=== PATIENT | female | born 1930 | race Caucasian/White ===

== ENCOUNTER 2016-11-01 15:08 | Emergency (ER) | payer MEDICARE, MEDICAID ==
--- NOTE | 2016-11-01 16:29 | RAD ---
Indication: Fall, head injury. CT of the head was performed without IV contrast. Comparison is made with previous exam dated August 17, 2015. Ventricular structures are midline. No midline shift is noted. There is central and cortical atrophy noted. 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 There is no evidence of intracranial mass or hemorrhage. Additionally hypodensity is noted in the left occipital lobe likely due to old infarct. 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 IMPRESSION: NO INTRACRANIAL MASS OR HEMORRHAGE IS NOTED. 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 NO INTRACRANIAL MASS OR HEMORRHAGE IS NOTED.
--- NOTE | 2016-11-01 16:32 | RAD ---
Indication: Fall, neck injury. CT of the cervical spine was obtained in the axial plane. Sagittal and coronal reconstructed images were obtained. Mastoid air cells and skull base are unremarkable with no evidence of fracture. The C1 ring is intact. No fracture is identified. There is calcification of the transverse ligament. The vertebral bodies appear normal in height. No fracture is noted. At C2-C3 there is left facet hypertrophy is noted. No central or foraminal stenosis is noted. At C4-C5 spondylitic ridge with left uncovertebral joint hypertrophy narrows the left foramen. No central foraminal stenosis is noted. Minimal broad-based protrusion is noted. At C4-C5 spondylitic ridge is noted. Bilateral uncovertebral joint hypertrophy and bilateral facet arthropathy is noted with bilateral foraminal stenosis. At C5-C6 spondylitic ridge is noted. No central or foraminal stenosis is noted. Mild facet arthropathy is noted. Ventral osteophyte formation is present. At C6-C7 no focal protrusion is identified. No central or foraminal stenosis is noted. Ventral osteophyte formation is noted. At C7-T1 disc space appears unremarkable. No central or foraminal stenosis is noted. Ventral osteophyte formation is noted. IMPRESSION: Degenerative disc disease is present at multiple levels. No fracture of the cervical spine is noted.
--- NOTE | 2016-11-01 16:34 | RAD ---
Indication: Fall, facial injury. CT of the facial bones is obtained in the axial plane. Sagittal and coronal reconstructed images were obtained. Comminuted fracture of the nasal arch is noted both on the left and on the right side. Mild soft tissue swelling is noted. The orbits are otherwise intact. The paranasal sinuses are intact. The zygomatic arch demonstrates no fracture. Temporomandibular joints are unremarkable. The visualized mandible demonstrates no evidence of fracture. Maxilla including pterygoid plates demonstrates no fracture of old the left maxillary sinus appears to be hypoplastic. IMPRESSION: Comminuted fracture of the left and right nasal arch with slight overriding of the fracture fragments in soft tissue swelling. Clinical correlation is suggested. No other fractures are noted.
[2016-11-01 16:43] LABS: Hematocrit 35 % (35-47); Hemoglobin 11.6 g/dl (12.0-16.0); Mean Corpuscular HGB Conc 33 g/dl (31-36); Mean Corpuscular Hemoglobin 31 pg (27-31); Mean Corpuscular Volume 92 fL (80-97); Mean Platelet Volume 9 um3 (7.4-10.4); Red Blood Count 3.79 10^6/ul (4.0-5.4); Red Cell Distribution Width 14 % (10.5-15); White Blood Count 8.6 10^3/ul (3.5-10.8)
[2016-11-01 16:57] LABS: Calcium 9.7 mg/dL (8.6-10.3); EGFR African American 50.8 (>60); EGFR Non-African American 39.5 (>60); Globulin 3.4 g/dL (2-4); Potassium 3.8 mmol/L (3.5-5.0); Total Bilirubin 0.5 mg/dL (0.2-1.0); Total Protein 7.4 g/dL (6.4-8.9)
--- NOTE | 2016-11-01 17:18 | RAD ---
Indication: LEFT hip pain post fall. Comparison: August 17, 2015 and May 05, 2015 Technique: AP pelvis and AP and frog-leg lateral views LEFT hip. Report: Bipolar LEFT hip hemiprosthesis is normally located. No periprosthetic fracture or stigmata of loosening. Large burden of dystrophic bone formation about the LEFT hip without change compared with the 2015 exam. The RIGHT hip is remarkable for osteophytosis and osseous metaplasia of degenerated labrum without significant joint space narrowing. Sequela of bilateral healed pubic rami fractures without change. No acute pelvic fracture or joint diastases. Diffuse enthesopathy. 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 Unremarkable soft tissue contours. IMPRESSION: No acute traumatic injury of the hip or pelvis evident.
[2016-11-01] MEDS ORDERED: Acetaminophen TAB* 325 MG PO ONE (17:32)
--- NOTE | 2016-11-01 18:36 | ED ---
Pawan Duarte Alok, scribed for Jefe Alaniz MD on 11/01/16 at 1601 . Adult Trauma - HPI Summary HPI Summary: 86 y/o female presents to the ED after falling forwards while trying to grape picker something up from the ground. Pt has ecchymosis on the left side of her forehead and notes pain on the left side of her hip towards the back, and denies any head pain or LOC. - History of Current Complaint Chief Complaint: EDHeadInjury Stated Complaint: LT ELBOW LAC Time Seen by Provider: 11/01/16 15:39 Hx Obtained From: Patient ?: No Mechanism of Injury: Fall Loss of Consciousness: no loss of consciousness Onset/Duration: Started Hours Ago, Traumatic, Still Present Onset of Pain: Immediate Onset Severity: Moderate Current Severity: Moderate Pain Intensity: 5 Pain Scale Used: 0-10 Numeric Location: Head, Abdomen/Pelvis Aggravating Factor(s): Nothing Alleviating Factor(s): Nothing Associated Signs & Symptoms: Positive: Ecchymosis - left side forehead. Negative: Loss of Consciousness - Allergy/Home Medications Allergies/Adverse Reactions: Allergies Allergy/AdvReac Type Severity Reaction Status Date / Time Morphine Allergy Intermediate Agitation Verified 08/17/15 12:23 Nitroglycerin Allergy Mild Unknown Verified 08/17/15 12:23 [From Transderm-Nitro] Reaction Details Cefuroxime [From Ceftin] Allergy Unknown Unknown Verified 08/17/15 12:23 Reaction Details Iodine Allergy Unknown Unknown Verified 08/17/15 12:23 Reaction Details Iodinated Diagnostic Agents Allergy Unknown Verified 08/17/15 12:23 Reaction Details PMH/Surg Hx/FS Hx/Imm Hx Endocrine/Hematology History: Reports: Hx Anticoagulant Therapy, Hx Diabetes, Hx Thyroid Disease, Hx Anemia Cardiovascular History: Reports: Hx Hypertension, Hx Valvular Heart Disease Respiratory History: Denies: Hx Asthma GI History: Denies: Hx Ulcer Musculoskeletal History: Reports: Hx Arthritis - Rheumatoid, Hx Osteoporosis, Other Musculoskeletal History - fractures; pt not sure of left tibial fracture Comment Only: Hx Rheumatoid Arthritis - OSTIO ARTHRITIS Sensory History: Reports: Hx Contacts or Glasses, Hx Hearing Problem - pt stated rt ear [facility] Opthamlomology History: Reports: Hx Contacts or Glasses - Cancer History Cancer Type, Location and Year: RT BREAST CA - Surgical History Surgery Procedure, Year, and Place: OPEN HEART SURGERY,LEFT HIP REPLACEMENT - Immunization History Date of Tetanus Vaccine: Unknown Infectious Disease History: Denies: Hx Clostridium Difficile, Hx Hepatitis, Hx Human Immunodeficiency Virus (HIV), Hx of Known/Suspected MRSA, Hx Shingles, Hx Tuberculosis, Hx Known/ Suspected VRE, Hx Known/Suspected VRSA, History Other Infectious Disease, Traveled Outside the [place] in Last 30 Days - Family History Known Family History: Positive: Cardiac Disease - Social History Occupation: Retired Lives: [facility] Alcohol Use: None Substance Use Type: Reports: None Smoking Status (MU): Former Smoker Type: Cigarettes Amount Used/How Often: cannot remember Review of Systems Negative: Fever Positive: Other - Hip Pain Positive: Bruising Negative: Headache All Other Systems Reviewed And Are Negative: Yes Physical Exam - Summary Physical Exam Summary: VITAL SIGNS: Reviewed. GENERAL: ~Patient is an elderly female who is lying comfortable in the stretcher. ~Patient is not in any acute respiratory distress. HEAD AND FACE: Ecchymosis left side forehead and around left eye EYES: PERRLA, EOMI x 2. EARS: Hearing grossly intact. MOUTH: Oropharynx within normal limits. NECK: Supple, trachea is midline, no adenopathy, no JVD, no carotid bruit. CHEST: Symmetric, no tenderness at palpation LUNGS: Clear to auscultation bilaterally. No wheezing or crackles. CVS: Regular rate and rhythm, S1 and S2 present, no murmurs or gallops appreciated. ABDOMEN: Soft, non-tender. Bowel sounds are normal. No abdominal abnormal pulsations. EXTREMITIES: Decreased ROM hip secondary to pain. No other ecchymosis appreciated. NEURO: Alert and oriented x 3. No acute neurological deficits. Speech is normal and follows commands. SKIN: Dry and warm Triage Information Reviewed: Yes Vital Signs On Initial Exam: Initial Vitals Temp Pulse Resp BP Pulse Ox 98.8 F 84 16 137/53 100 11/01/16 15:10 11/01/16 15:10 11/01/16 15:10 11/01/16 15:10 11/01/16 15:10 Vital Signs Reviewed: Yes Diagnostics - Vital Signs Vital Signs Temp Pulse Resp BP Pulse Ox 11/01/16 15:10 98.8 F 84 16 137/53 100 - Laboratory Lab Results: Lab Results 11/01/16 11/01/16 Range/Units 16:30 16:30 WBC 8.6 (3.5-10.8) 10^3/ul RBC 3.79 L (4.0-5.4) 10^6/ul Hgb 11.6 L (12.0-16.0) g/dl Hct 35 (35-47) % MCV 92 (80-97) fL MCH 31 (27-31) pg MCHC 33 (31-36) g/dl RDW 14 (10.5-15) % Plt Count 140 L (150-450) 10^3/ul MPV 9 (7.4-10.4) um3 Neut % (Auto) 64.6 (38-83) % Lymph % (Auto) 19.7 L (25-47) % Mcdowell % (Auto) 10.6 H (1-9) % Eos % (Auto) 3.7 (0-6) % Baso % (Auto) 1.4 (0-2) % Absolute Neuts (auto) 5.6 (1.5-7.7) 10^3/ul Absolute Lymphs (auto) 1.7 (1.0-4.8) 10^3/ul Absolute Monos (auto) 0.9 H (0-0.8) 10^3/ul Absolute Eos (auto) 0.3 (0-0.6) 10^3/ul Absolute Basos (auto) 0.1 (0-0.2) 10^3/ul Absolute Nucleated RBC 0.01 10^3/ul Nucleated RBC % 0.1 Sodium 137 (133-145) mmol/L Potassium 3.8 (3.5-5.0) mmol/L Chloride 100 L (101-111) mmol/L Carbon Dioxide 30 (22-32) mmol/L Anion Gap 7 (2-11) mmol/L BUN 32 H (6-24) mg/dL Creatinine 1.28 H (0.51-0.95) mg/dL Est GFR ( Amer) 50.8 (>60) Est GFR (Non-Af Amer) 39.5 (>60) BUN/Creatinine Ratio 25.0 H (8-20) Glucose 104 H (70-100) mg/dL Calcium 9.7 (8.6-10.3) mg/dL Total Bilirubin 0.50 (0.2-1.0) mg/dL AST 16 (13-39) U/L ALT 7 (7-52) U/L Alkaline Phosphatase 74 (34-104) U/L Total Protein 7.4 (6.4-8.9) g/dL Albumin 4.0 (3.2-5.2) g/dL Globulin 3.4 (2-4) g/dL Albumin/Globulin Ratio 1.2 (1-3) Result Diagrams: 11/01/16 16:30 11/01/16 16:30 Lab Statement: Any lab studies that have been ordered have been reviewed, and results considered in the medical decision making process. - Radiology Hip/Pelvis XRAY Xray Interpretation: Positive (See Comments) - IMPRESSION: No acute traumatic injury of the hip or pelvis evident. Radiology Interpretation Completed By: Radiologist - CT Brain CT CT Interpretation: Positive (See Comments) - IMPRESSION: NO INTRACRANIAL MASS OR HEMORRHAGE IS NOTED. 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 NO INTRACRANIAL MASS OR HEMORRHAGE IS NOTED. CT Interpretation Completed By: Radiologist Cervical Spine CT CT Interpretation: Positive (See Comments) - IMPRESSION: Degenerative disc disease is present at multiple levels. No fracture of the cervical spine is noted. CT Interpretation Completed By: Radiologist Maxillofacial CT CT Interpretation: Positive (See Comments) - IMPRESSION: Comminuted fracture of the left and right nasal arch with slight overriding of the fracture fragments in soft tissue swelling. Clinical correlation is suggested. No other fractures are noted. CT Interpretation Completed By: Radiologist Adult Trauma Course/Dx - Course Course Of Treatment: 86 y/o female presents to the ED after falling forwards while trying to grape picker something up from the ground. Pt notes pain on the left side of her hip towards the back, and denies any head pain or LOC. Assessment/Plan: Blood work within nml limits except for Hgb 11.6 L, BUN 32 H, Creatinine 12.[address] shows IMPRESSION: NO INTRACRANIAL MASS OR HEMORRHAGE IS NOTED. 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 NO INTRACRANIAL MASS OR HEMORRHAGE IS NOTED. Since pt has no fracture and no dislocation, we ambulated pt who showed a good and steady gait. There are no other pt complaints or pain. Pt is A+Ox3 and hemodynamically stable so will discharge with recommendation to follow up with PCP. I discussed all the findings and test results with the patient. Patient was instructed to return to the emergency room immediately if any of the symptoms return or worsens. Plan of care was discussed with the patient and understands and agrees. All questions were answered at patient satisfaction. There were no further complaints or concerns. Lung exam before discharge: CTA B /L. Good air exchange. No wheezing or crackles heard. CVS: S1 and S2 present. No murmurs appreciated. Patient is alert and oriented x 3. Patient is hemodynamically stable. Patient will be discharged home with follow up director retirement in the next 2-3 days - Diagnoses Provider Diagnoses: Head contusion, Contusion, hip, Facial contusion Discharge - Discharge Plan Condition: Stable Disposition: HOME Patient Education Materials: Scalp Contusion in Adults (ED), Hip Contusion (ED) , Facial Contusion (ED) Referrals: Floresita Christiansen MD [Primary Care Provider] - Additional Instructions: Please follow up with your primary care provider. The documentation as recorded by the Pawan boyce Alok accurately reflects the service I personally performed and the decisions made by me, Jefe Alaniz MD.
[2016-11-01 19:21] VITALS: BP 119/57
== END 2016-11-01 19:19 | disposition home or self-care (01) ==
LOC: ED 15:08
DX: S00.93XA Contusion of unspecified part of head, initial encounter (principal); S70.02XA Contusion of left hip, initial encounter; W19.XXXA Unspecified fall, initial encounter; Y93.9 Activity, unspecified; Y92.9 Unspecified place or not applicable; Z79.01 Long term (current) use of anticoagulants; Z87.891 Personal history of nicotine dependence
CPT/HCPCS: 36415; 70450; 70486; 72125; 80053; 85025; 99282; A9270-GY

== ENCOUNTER 2017-01-10 19:29 | Observation (INO) | payer MEDICARE, MEDICAID ==
--- NOTE | 2017-01-10 20:26 | ED ---
Rossi Duarte SooYoung, scribed for Charles Cazares MD on 01/10/17 at 1954 . Adult Trauma - HPI Summary HPI Summary: A 86 y/o F THIAGO presents to ED after a fall at approx 1830. Pt states she had made herself something to eat, and went to sit down when she fell and hit her head on a chair. Denies LOC. Associated sx: multiple ecchymosis around mouth and forehead; dried blood present around nose and upper lip; L shoulder pain from when caregivers helped her up. Pert PMHx: strokes. Pt lives in assisted living ([facility]) and ambulates with a walker. 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 Negative: Loss of Consciousness - Allergy/Home Medications Allergies/Adverse Reactions: Allergies Allergy/AdvReac Type Severity Reaction Status Date / Time Morphine Allergy Intermediate Agitation Verified 08/17/15 12:23 Nitroglycerin Allergy Mild Unknown Verified 08/17/15 12:23 [From Transderm-Nitro] Reaction Details Cefuroxime [From Ceftin] Allergy Unknown Unknown Verified 08/17/15 12:23 Reaction Details Iodine Allergy Unknown Unknown Verified 08/17/15 12:23 Reaction Details Iodinated Diagnostic Agents Allergy Unknown Verified 08/17/15 12:23 Reaction Details PMH/Surg Hx/FS Hx/Imm Hx Previously Healthy: No Endocrine/Hematology History: Reports: Hx Anticoagulant Therapy, Hx Diabetes, Hx Thyroid Disease, Hx Anemia Cardiovascular History: Reports: Hx Hypertension, Hx Valvular Heart Disease Respiratory History: Denies: Hx Asthma GI History: Denies: Hx Ulcer Musculoskeletal History: Reports: Hx Arthritis - Rheumatoid, Hx Osteoporosis, Other Musculoskeletal History - fractures; pt not sure of left tibial fracture Comment Only: Hx Rheumatoid Arthritis - OSTIO ARTHRITIS Sensory History: Reports: Hx Contacts or Glasses, Hx Hearing Problem - pt stated rt ear [place] Opthamlomology History: Reports: Hx Contacts or Glasses - Cancer History Cancer Type, Location and Year: RT BREAST CA - Surgical History Surgery Procedure, Year, and Place: OPEN HEART SURGERY,LEFT HIP REPLACEMENT - Immunization History Date of Tetanus Vaccine: Unknown Infectious Disease History: No Infectious Disease History: Denies: Hx Clostridium Difficile, Hx Hepatitis, Hx Human Immunodeficiency Virus (HIV), Hx of Known/Suspected MRSA, Hx Shingles, Hx Tuberculosis, Hx Known/ Suspected VRE, Hx Known/Suspected VRSA, History Other Infectious Disease, Traveled Outside the [place] in Last 30 Days - Family History Known Family History: Positive: Cardiac Disease - Social History Occupation: Retired Lives: Assisted Living Alcohol Use: None Hx Substance Use: No Substance Use Type: Reports: None Hx Tobacco Use: Yes Smoking Status (MU): Former Smoker Type: Cigarettes Amount Used/How Often: cannot remember Review of Systems Negative: Fever Positive: Other - pos: L shoulder pain Positive: Bruising, Other - pos: dried blood on face All Other Systems Reviewed And Are Negative: Yes Physical Exam Triage Information Reviewed: Yes Vital Signs On Initial Exam: Initial Vitals Temp Pulse Resp BP Pulse Ox 98.3 F 72 18 142/57 97 01/10/17 19:31 01/10/17 19:31 01/10/17 19:31 01/10/17 19:31 01/10/17 19:31 Vital Signs Reviewed: Yes Appearance: Positive: Well-Appearing, Pain Distress - mild discomfort Skin: Positive: Warm Head/Face: Positive: Other - patchy ecchymosis to frontal scalp, mid face, chin Eyes: Positive: CAT ENT: Positive: Hearing grossly normal Neck: Positive: Supple Respiratory/Lung Sounds: Positive: Breath Sounds Present Cardiovascular: Positive: RRR Abdomen Description: Positive: Nontender, Soft Bowel Sounds: Positive: Present Musculoskeletal: Positive: Strength/ROM Intact Psychiatric: Positive: Affect/Mood Appropriate - [place]ump Coma Scale Coma Scale Total: 15 Diagnostics - Vital Signs Vital Signs Temp Pulse Resp BP Pulse Ox 01/10/17 19:31 98.3 F 72 18 142/57 97 - Laboratory Result Diagrams: 01/10/17 21:48 01/10/17 21:48 Lab Statement: Any lab studies that have been ordered have been reviewed, and results considered in the medical decision making process. - Radiology CXR Xray Interpretation: Positive (See Comments) - IMPRESSION: Hyperinflation, consistent with COPD. No active cardiopulmonary dz. Radiology Interpretation Completed By: Radiologist - CT Brain CT Interpretation: Positive (See Comments) - IMPRESSION: Large L frontal scalp hematoma. No acute intracranial pathology. CT Interpretation Completed By: Radiologist Maxillofacial CT Interpretation: Positive (See Comments) - IMPRESSION: 1. Chronic bilateral nasal bone fractures. 2. Large frontal scalp hematoma. C-Spine CT Interpretation: No Acute Changes - IMPRESSION: 1. OSTEOPENIA. 2. DEGENERATIVE DISC DISEASE AND OSTEOARTHRITIS. 3. NO ACUTE OSSEOUS INJURY TO THE CERVICAL SPINE CT Interpretation Completed By: Radiologist - EKG 1 EKG Rhythm: Sinus Rhythm Re-Evaluation - Re-Evaluation 1 Re-Evaluation Time: 22:15 Change: Unchanged Comment: Discussing results with pt, d/w hospitalist Adult Trauma Course/Dx - Course Course Of Treatment: Pt is a 86 y/o F presenting after a fall at approx 1830. Pt fell and hit her head on a chair. Denies LOC. Associated sx: multiple ecchymosis around mouth and forehead; dried blood present around nose and upper lip; L shoulder pain. Pt lives in assisted living and ambulates with a walker. Brain CT shows L frontal scalp hematoma and no acute intracranial pathology. Maxillofacial CT shows chronic bilateral nasal bone fractures. C-spine CT found no acute injury to c-spine. CXR shows hyperinflation, consistent with COPD. No active cardiopulmonary dz. EKG shows NSR. - Diagnoses Provider Diagnoses: Hyponatremia, Falls frequently Discharge - Discharge Plan Condition: Fair Disposition: ADMITTED TO [facility] documentation as recorded by the Rossi boyce SooYoung accurately reflects the service I personally performed and the decisions made by me, Charles Cazares MD.
--- NOTE | 2017-01-10 20:26 | RAD ---
HISTORY: Fall, head trauma COMPARISONS: November 01, 2016 TECHNIQUE: Multiple contiguous axial CT scans were obtained of the head without intravenous contrast. FINDINGS: HEMORRHAGE/INFARCT: There is no hemorrhage or acute infarct. MASSES/SHIFT: There is no mass or shift. EXTRA-AXIAL SPACES: There are no extra-axial fluid collections. SULCI AND VENTRICLES: There is diffuse and proportional enlargement of the sulci and ventricles. CEREBRUM: There is a chronic appearing lacunar infarct of the right thalamus. BRAINSTEM: There are no focal parenchymal abnormalities. CEREBELLUM: There are no focal parenchymal abnormalities. VESSELS: The vessels are grossly normal. PARANASAL SINUSES: The paranasal sinuses are clear. ORBITS: The orbits are unremarkable. BONES AND SOFT TISSUE: There is a large left frontal scalp hematoma. OTHER: None IMPRESSION: LARGE LEFT FRONTAL SCALP HEMATOMA. NO ACUTE INTRACRANIAL PATHOLOGY.
--- NOTE | 2017-01-10 20:30 | RAD ---
HISTORY: Fall, head trauma COMPARISONS: November 01, 2016 TECHNIQUE: Multiple contiguous axial CT scans were obtained of the face without intravenous contrast, with coronal and sagittal multiplanar reformations. FINDINGS: BONES: There, the fractures of the nasal bones bilaterally. These are chronic compared to November 01, 2016 There is diffuse osteopenia. There is osteoarthritis of the temporomandibular joints. ORBITS: The globes are round. The optic nerves are symmetric. The extraocular musculature is normal. There is no post septal or intraconal inflammatory change. There is no retrobulbar hematoma. PARANASAL SINUSES: The paranasal sinuses are clear. BRAIN AND SOFT TISSUE: There is a large left frontal scalp hematoma OTHER: None. IMPRESSION: 1. CHRONIC BILATERAL NASAL BONE FRACTURES. 2. LEFT FRONTAL SCALP HEMATOMA
--- NOTE | 2017-01-10 20:31 | RAD ---
HISTORY: Fall, head trauma COMPARISONS: November 01, 2016 TECHNIQUE: Multiple contiguous axial CT scans were obtained of the cervical spine without intravenous contrast, with coronal and sagittal multiplanar reformations. FINDINGS: BRAIN: The visualized brain is unremarkable CENTRAL CANAL: Evaluation of the central canal is limited on CT technique; however, there is no obvious canalicular mass or epidural hemorrhage. ALIGNMENT: There is straightening of the cervical lordosis. VERTEBRAL BODIES: There is diffuse osteopenia. There is multilevel anterolateral marginal osteophyte formation. There is no displaced fracture. JOINTS: There is osteoporosis of the atlantoaxial fixation of the uncovertebral and facet joints. There is large pannus formation at the atlantoaxial articulation. MUSCULATURE: Unremarkable INTERVERTEBRAL DISCS: There is diffuse loss of intervertebral disc height. AXIAL IMAGES: There is diffuse moderate neuroforaminal narrowing. There is no osseous central canal stenosis SOFT TISSUES: The visualized soft tissues of the neck are unremarkable. The prevertebral fat stripe is preserved. OTHER: None. IMPRESSION: 1. OSTEOPENIA. 2. DEGENERATIVE DISC DISEASE AND OSTEOARTHRITIS. 3. NO ACUTE OSSEOUS INJURY TO THE CERVICAL SPINE
--- NOTE | 2017-01-10 20:32 | RAD ---
HISTORY: Fall, head trauma COMPARISONS: October 27, 2014 VIEWS: 2: Frontal and lateral views of the chest. FINDINGS: CARDIOMEDIASTINAL SILHOUETTE: The cardiomediastinal silhouette is normal. YULIANA: The yuliana are normal. PLEURA: The costophrenic angles are sharp. No pleural abnormalities are noted. LUNG PARENCHYMA: There is hyperinflation with flattening of the diaphragm and expansion of the AP diameter of the chest. ABDOMEN: The upper abdomen is clear. There is no subphrenic gas. BONES AND SOFT TISSUES: There is diffuse osteopenia. Degenerative changes are noted of the spine and shoulders. The patient is status post median sternotomy. OTHER: None. IMPRESSION: HYPERINFLATION, CONSISTENT WITH COPD. NO ACTIVE CARDIOPULMONARY DISEASE.
[2017-01-10 21:54] LABS: Hematocrit 29 % (35-47); Hemoglobin 9.7 g/dl (12.0-16.0); Mean Corpuscular HGB Conc 33 g/dl (31-36); Mean Corpuscular Hemoglobin 30 pg (27-31); Mean Corpuscular Volume 91 fL (80-97); Mean Platelet Volume 8 um3 (7.4-10.4); Red Blood Count 3.21 10^6/ul (4.0-5.4); Red Cell Distribution Width 14 % (10.5-15); White Blood Count 8.2 10^3/ul (3.5-10.8)
[2017-01-10 22:08] LABS: Albumin 3.9 g/dL (3.2-5.2); BUN/Creatinine Ratio 27.1 (8-20); Calcium 9.1 mg/dL (8.6-10.3); EGFR African American 55.9 (>60); EGFR Non-African American 43.4 (>60); Potassium 3.3 mmol/L (3.5-5.0); Total Bilirubin 0.4 mg/dL (0.2-1.0); Total Protein 6.9 g/dL (6.4-8.9)
[2017-01-10] MEDS ORDERED: Al Hydrox/Mg Hydrox/Simet LIQ* 30 ML UDC PO PRN (23:27)
[2017-01-10] MEDS ORDERED: oxyCODONE/Acetamin 5/325 MG* TAB PO PRN (23:27)
[2017-01-10] MEDS ORDERED: Ondansetron INJ* 2 MG/ML VIAL IV PRN (23:27)
[2017-01-10] MEDS ORDERED: Acetaminophen TAB* 325 MG PO PRN (23:27)
[2017-01-10] MEDS ORDERED: Dextrose 50% Syringe 50 ML* 25 GM/50 ML SYRINGE IV PUSH PRN (23:32)
[2017-01-10] MEDS ORDERED: traMADol TAB* 50 MG PO PRN (23:33)
[2017-01-10] MEDS ORDERED: Potassium Chlor TAB* 10 MEQ TAB.ER PO ONE (23:49)
[2017-01-11 00:04] LABS: Troponin I 0.02 ng/mL (<0.04)
[2017-01-11 00:06] LABS: Magnesium 1.5 mg/dL (1.9-2.7)
[2017-01-11 00:11] LABS: TSH (Thyroid Stimulating Horm) 2.9 mcIU/mL (0.34-5.60)
[2017-01-11] MEDS ORDERED: Magnesium Sulfate 2 GM IV* 2 GM/50 ML BAG IVPB ONE (00:43)
--- NOTE | 2017-01-11 02:43 | HP ---
CC: Floresita Christiansen MD HISTORY AND PHYSICAL: DATE OF ADMISSION: 01/10/17 TIME OF EVALUATION: 2300 hours. PRIMARY CARE PHYSICIAN: Floresita Christiansen MD CHIEF COMPLAINT: Fall. HISTORY OF PRESENT ILLNESS: This is an 86-year-old female with a past medical history of diabetes, history of stroke, and CKD, who presented to the emergency room from [facility] after having a fall. The patient states she has had strokes in the past with some memory impairment and does not remember exactly what happened. She states she has been having difficulty eating due to issues with her lower teeth and she is planning to go to a dentist to get her teeth removed and get fitted with dentures, when she was trying to get some cereal and she uses a walker that has a chair in place and she wheeled herself over and she said she was sitting down and she is not sure if she bumped into something and she fell on her face. She states she does not feel that she lost consciousness, but does not remember what happened. She is complaining of a headache, left shoulder pain, and right elbow pain. She has no nausea or vomiting. She denies any chest pain or shortness of breath. She states that she has issues with falling every so often, this is not new to her. She has been in the hospital in the past for falls. She is alert and oriented x3. She also states that she does have chronic diarrhea, but she has been having more diarrhea of lately. New medication that she has recently started on is Marinol. She states that she has been having difficulty with keeping her weight up, but she feels this is attributed to her problems with her lower teeth and having difficulty eating because of the pain. Otherwise, remaining review of systems is negative. In the emergency room, the patient had labs and several imaging and was referred to the hospitalist service for further evaluation. PAST MEDICAL HISTORY: 1. Diabetes. 2. History of CAD. 3. History of CVA. 4. AFib, off anticoagulation. 5. CKD. 6. Hyperlipidemia. 7. Depression. 8. History of rectus sheath hematoma. 9. Hypertension. 10. Hypothyroidism. 11. History of iron-deficiency anemia. 12. History of microscopic colitis. 13. Vitamin B12 deficiency. PAST SURGICAL HISTORY: Coronary artery bypass graft. MEDICATIONS: 1. Omeprazole 20 mg p.o. daily. 2. Triamterene/hydrochlorothiazide 37.5/25 mg 1 cap daily. 3. Aspirin 81 mg daily. 4. Calcium with vitamin D daily. 5. Levothyroxine 50 mcg daily. 6. Pravastatin 40 mg daily. 7. Sertraline 100 mg daily. 8. Multivitamin daily. 9. Vitamin B12 1000 mcg daily. 10. Dronabinol 2.5 mg p.o. t.i.d. 11. Loperamide as needed for diarrhea. 12. Tylenol 650 mg every 6 hours as needed for pain. 13. Tramadol 50 mg every 6 hours as needed for pain. ALLERGIES: MORPHINE, NITROGLYCERIN, CEFUROXIME, and IODINE. SOCIAL HISTORY: As mentioned, the patient lives at [facility]. No history of tobacco, alcohol, or illicit drug use. She ambulates with a walker. Her health care proxy is her daughter, Eunice Miles. Code status, it appears that the patient has been DNR in the past. On my encounter, she states she would like to be a full code. She would like to be alive on February 10 when her daughter is getting . FAMILY HISTORY: Reviewed and noncontributory. REVIEW OF SYSTEMS: As mentioned in the HPI. PHYSICAL EXAMINATION GENERAL: A frail elderly lady, in no acute distress. VITAL SIGNS: Temperature 98.3, pulse rate 61, respiratory rate 18, oxygen saturation 92% on room air, and blood pressure 127/53. HEENT: Head, a patient with scattered ecchymosis on the most prominent left frontal scalp region and orofacial region. Pupils are pinpoint and reactive, anicteric. Head is normocephalic with as mentioned ecchymosis and hematoma on the frontal region as well. Oropharynx, mucous membranes moist. No erythema or exudate. NECK: Supple. No lymphadenopathy. CARDIAC: Harsh systolic murmur heard at the most prominent right sternal border. Regular rate and rhythm. RESPIRATORY: Diminished breath sounds. No wheezes, rhonchi, or rales. ABDOMEN: Soft, nontender, and nondistended. EXTREMITIES: The patient with ecchymosis over her left shoulder with pain with range of motion. Bandage wrapped over her left elbow and as mentioned the skin with ecchymosis over her face. Lower extremities, no clubbing, cyanosis, or edema; +1 DPs. NEUROLOGIC: Alert and oriented x3. No focal neurological deficits. DIAGNOSTIC STUDIES/LAB DATA: White count 8.2, hemoglobin 9.7, hematocrit 29, and platelets 155. INR is 1.02. Sodium 124, potassium 3.3, chloride 89, bicarbonate 28, BUN 32, creatinine 1.18, and glucose 121. Radiographic data: Head CT, a large left frontal scalp hematoma, no acute intracranial pathology. Cervical spine CT shows osteopenia, degenerative disk disease, and osteoarthritis. No acute osseus injury to the cervical spine. Chest x-ray, hyperinflation consistent with COPD. No active cardiopulmonary disease. Maxillofacial CT, shows chronic bilateral nasal bone fractures, left frontal scalp hematoma. EKG shows normal sinus rhythm, nonspecific ST-wave changes. ASSESSMENT: This is an 86-year-old female with past medical history of cerebrovascular accident and atrial fibrillation, who presented to the emergency room from [facility] after having a fall. 1. Fall: Assessment: The patient is not entirely clear on how she fell. She admits to having memory impairment from her strokes. This fall could be multifactorial in the setting of age, comorbidities, could be polypharmacy. She was recently started on Marinol, which could be sedating. She also has a low sodium at 124, which is new for her, last month it was 140 with increase in diarrhea, also on hydrochlorothiazide could be contributing to that. Also she has a significant murmur on exam as well could be syncope related. Plan: I am going to admit her for observation to telemetry. We will check a troponin. We will check a urine and serum osmolarity and the urine sodium. I am going to hold her hydrochlorothiazide and Marinol. We will get a PT evaluation and follow up accordingly. I am also going to obtain a left shoulder x-ray as she is still complaining of pain there. No x-ray had been done. 2. Chronic medical problems: Hypertension: As mentioned. I am going to hold her triamterene/ hydrochlorothiazide in the setting of her new onset hyponatremia. Her blood pressure varied quite significantly in the emergency room. We will check orthostatics to make sure this is not contributing to her fall as well. 3. Hypothyroidism: We will check her TSH and resume her Synthroid. 4. Hyperlipidemia: We will hold the pravastatin as we do not have different formulary. 5. Depression: Continue on her Zoloft 100 mg daily. 6. Coronary artery disease: Continue on her baby aspirin daily. 7. Diabetes: We will check her glucose and place her on lispro sliding scale a.c. 8. FEN: Place her on a regular diet. 9. DVT prophylaxis: The patient scores high risk. Place her on heparin subcu t.i.d. 10. Code status: The patient has a DNR here from [place], which is a non- hospital order. On my encounter when reviewed for her, she would like to be a full code until her daughter gets on February 10 and have that reassessed. PATIENT TIME: Greater than 70 minutes was spent doing the history and physical , more than half the time was spent in direct patient contact. [id number]/[facility] #: [id number]
[2017-01-11 05:42] LABS: Hematocrit 31 % (35-47); Hemoglobin 10.3 g/dl (12.0-16.0); Mean Corpuscular HGB Conc 33 g/dl (31-36); Mean Corpuscular Hemoglobin 30 pg (27-31); Mean Corpuscular Volume 91 fL (80-97); Mean Platelet Volume 8 um3 (7.4-10.4); Red Blood Count 3.39 10^6/ul (4.0-5.4); Red Cell Distribution Width 14 % (10.5-15); White Blood Count 10.7 10^3/ul (3.5-10.8)
[2017-01-11 05:52] LABS: BUN/Creatinine Ratio 28.3 (8-20); Calcium 9.3 mg/dL (8.6-10.3); EGFR African American 63.2 (>60); EGFR Non-African American 49.2 (>60); Potassium 3.5 mmol/L (3.5-5.0)
[2017-01-11] MEDS ORDERED: Omeprazole CAP* 20 MG PO SCH (06:00)
[2017-01-11] MEDS ORDERED: Levothyroxine TAB* 50 MCG TAB PO SCH (06:00)
[2017-01-11] MEDS: Heparin VIAL(*) 5000 UNITS/ML VIAL (FIVE THOUSAND) SUBCUT SCH ×2 (07:25→16:32)
[2017-01-11] MEDS: Insulin LISPRO* 1 UNITS UNIT SUBCUT SCH ×2 (07:49→12:21)
--- NOTE | 2017-01-11 08:19 | RAD ---
INDICATION: Left shoulder pain after a fall COMPARISON: None. TECHNIQUE: 6 views of the left shoulder were obtained. FINDINGS: The adequately corticated bones are in normal alignment. Degenerative changes of the left shoulder include joint space narrowing and sclerotic change of the articulating services. There is osteophyte formation adjacent to the superior margin of the glenohumeral joint as well as osteophyte formation adjacent to the acromioclavicular joint. No fracture, dislocation or focal bony abnormality is seen. IMPRESSION: DEGENERATIVE CHANGES OF THE LEFT SHOULDER WITHOUT DEFINITE FRACTURE OR DISLOCATION. If the patient's symptoms persist, follow-up imaging is recommended.
[2017-01-11] MEDS ORDERED: Aspirin EC Low Dose* 81 MG TAB.EC PO SCH (09:00)
[2017-01-11] MEDS ORDERED: Sertraline* 100 MG TAB PO SCH (09:00)
[2017-01-11] MEDS ORDERED: NS 0.9% 1000 ML* 1,000 ML IV SCH (09:45)
[2017-01-11 11:01] LABS: Urine Bilirubin Negative (Negative); Urine Glucose Negative (Negative); Urine Nitrite Negative (Negative)
[2017-01-11 11:56] VITALS: BP 103/40
--- NOTE | 2017-01-12 05:01 | DS ---
CC: Floresita Christiansen MD* DISCHARGE SUMMARY: DATE OF ADMISSION: 01/10/17 DATE OF DISCHARGE: 01/11/17 PRIMARY CARE PROVIDER: Floresita Christiansen MD PRIMARY DIAGNOSES: 1. Fall. 2. Hyponatremia. SECONDARY DIAGNOSES: Include: 1. Diabetes. 2. History of coronary artery disease. 3. Atrial fibrillation. 4. Chronic kidney disease. 5. Depression. 6. Hypertension. 7. Hypothyroidism. MEDICATIONS ON DISCHARGE: 1. Imodium 4 mg daily as needed. 2. Acetaminophen 650 mg every 6 hours as needed for pain or fever. 3. Tramadol 50 mg every 6 hours as needed for pain. 4. Multivitamin 1 tab daily. 5. B12 1000 mcg daily. 6. Omeprazole 20 mg daily. 7. Levothyroxine 50 mcg in the morning. 8. Aspirin 81 mg daily. 9. Marinol 1 cap 3 times a day with meals. 10. Calcium carbonate with vitamin D 1 tab daily. 11. Zoloft 100 mg daily. 12. Pravastatin 40 mg daily. Please note the discontinuation of Dyazide. PERTINENT LABORATORY DATA: Sodium 124 on presentation, 126 the morning of discharge. Creatinine 1.18, later decreased to 1.06 with fluids. HISTORY OF PRESENT ILLNESS AND HOSPITAL COURSE: This is an 86-year-old female with past medical history as outlined in the history of present illness on the day of admission, who presented to the emergency room from [facility] after sustaining a fall. While she had significant ecchymoses on her face and forehead, multiple imaging studies did not indicate any fractures. The patient is in no distress and in fact had very minimal pain with the fall. She was observed overnight in the setting of the fall as well with hyponatremia. Her sodium improved by 2 mEq/dL with fluid. She was given another liter of fluid prior to discharge. Additionally, hydrochlorothiazide present in her Dyazide was discontinued prior to discharge. We had a prolonged conversation with the patient and her daughter prior to the discharge. The daughter was concerned because the patient has suffered several falls over the preceding several months. She was evaluated by Physical Therapy who thought she would benefit from continued physical therapy while hospitalized, but would not recommend inpatient subacute rehab. I did discuss with daughter and patient that we could potentially try to place her in a long-term nursing facility to mitigate the risk of her falls. Neither the patient nor the daughter would like to pursue this option and opted to return to [facility] versus attempt placement in another facility. I discussed at length measures to take to decrease fall risk including but not limited to using the walker at all times, leaving lights on at night, removing carpets and rugs to decrease fall risk, staying well hydrated to prevent lightheadedness or falls, sitting up slowly and standing up slowly prior to walking. The patient was in agreement with this plan. Extensive time was spent discussing questions. There are no complications during the patient's hospital stay. Reasons to return to the hospital including but not limited to recurrent or worsening symptoms, recurrent falls, lightheadedness, fevers, chills, night sweats, headaches, changes in vision, loss of consciousness or near loss of consciousness, chest pain, shortness of breath, and inability to obtain or tolerate medications were discussed with the patient and her daughter. They acknowledged understanding. TIME SPENT: Greater than 60 minutes was spent on discharge of this patient with greater than half the time spent [id number] with the patient. [id number]/[facility] #: [id number] MTDD
== END 2017-01-11 16:35 | disposition home or self-care (01) ==
LOC: ED 19:29 → MEDTELE 23:27
PROVIDERS: ADMIT Pediatrics; ATTEND Internal Medicine
DX: S00.83XA Contusion of other part of head, initial encounter (principal); W19.XXXA Unspecified fall, initial encounter; Z91.81 History of falling; Y92.89 Other specified places as the place of occurrence of the external cause; E87.1 Hypo-osmolality and hyponatremia; E11.9 Type 2 diabetes mellitus without complications; Z86.73 Personal history of transient ischemic attack (TIA), and cerebral infarction without residual deficits; M50.30 Other cervical disc degeneration, unspecified cervical region; M47.812 Spondylosis without myelopathy or radiculopathy, cervical region; E03.9 Hypothyroidism, unspecified; E78.5 Hyperlipidemia, unspecified; I25.10 Atherosclerotic heart disease of native coronary artery without angina pectoris; I12.9 Hypertensive chronic kidney disease with stage 1 through stage 4 chronic kidney disease, or unspecified chronic kidney disease; N18.9 Chronic kidney disease, unspecified; I48.91 Unspecified atrial fibrillation; Z95.1 Presence of aortocoronary bypass graft; Z79.82 Long term (current) use of aspirin; Z79.899 Other long term (current) drug therapy; Z88.5 Allergy status to narcotic agent; Z88.8 Allergy status to other drugs, medicaments and biological substances; Z87.891 Personal history of nicotine dependence
CPT/HCPCS: 36415; 70450; 70486; 71020; 72125; 80048; 80053; 81003; 83735; 83930; 83935; 84300; 84443; 84484; 85025; 85610; 93005; 96361; 96365; 96372; 99284; A9270-GY; G0378; G8978-GP-CK; J1644

== ENCOUNTER 2018-07-30 16:17 | Inpatient (IN) | payer MEDICARE, MEDICAID ==
[2018-07-30] MEDS ORDERED: HYDROmorphone INJ* 2 MG/ML CARPUJECT SYRINGE IV SLOW PU ONE (17:38)
--- NOTE | 2018-07-30 17:47 | ED ---
Adult Trauma - HPI Summary HPI Summary: This pt is an 88 y/o female presenting to [facility] via EMS from [place] for right leg and right hip pain s/p fall today. Pt reports she fell on tile floor while in the bathroom. Denies head strike or LOC. Pt also reports cough and SOB. She states she is eating and drinking well. Denies fever, nausea, vomiting, abd pain. Per nurse's note, pt had O2 saturation of 85% on room air. PMHx: neck fracture in April 2018. Pt was placed in a [place] J Collar since her fracture. - History of Current Complaint Chief Complaint: EDExtremityLower Stated Complaint: FALL Time Seen by Provider: 07/30/18 17:32 Hx Obtained From: Patient Mechanism of Injury: Fall Loss of Consciousness: no loss of consciousness Onset/Duration: Started Hours Ago, Still Present Onset of Pain: Immediate Current Severity: Severe Pain Intensity: 8 Pain Scale Used: 0-10 Numeric Location: Extremities - Right leg, Other - POS: right hip Character: Aching Aggravating Factor(s): Movement Alleviating Factor(s): Rest Associated Signs & Symptoms: Positive: SOB, Cough. Negative: Abdominal Pain, Fever, Nausea/Vomiting, Loss of Consciousness - Additional Pertinent History Primary Care Physician: [id number] - Allergy/Home Medications Allergies/Adverse Reactions: Allergies Allergy/AdvReac Type Severity Reaction Status Date / Time cefuroxime [From Ceftin] Allergy Unknown Verified 07/30/18 16:39 Reaction Details iodine Allergy Unknown Verified 07/30/18 16:39 Reaction Details Iodine and Iodide Containing Allergy Unknown Verified 07/30/18 16:39 Produc Reaction Details morphine Allergy Agitation Verified 07/30/18 16:39 nitroglycerin Allergy Unknown Verified 07/30/18 16:39 Reaction Details Home Medications: Home Medications Aspirin EC TAB* [Ecotrin EC Low Dose 81 MG*] 81 mg PO QAM 07/30/18 [History Confirmed 07/30/18] Budesonide CAP(NF) 9 mg PO QAM 07/30/18 [History Confirmed 07/30/18] Hydrocodone/APAP 5/300 (NF) [Vicodin 5 MG/300 MG(NF)] 1 tab PO Q4HR PRN [History Confirmed 07/30/18] Levothyroxine TAB* [Synthroid TAB*] 50 mcg PO DAILY 07/30/18 [History Confirmed 07/30/18] Loperamide CAP* [Imodium CAP*] 2 mg PO Q4H PRN 07/30/18 [History Confirmed 07/30] Pravastatin (NF) [Pravachol (NF)] 40 mg PO BEDTIME 07/30/18 [History Confirmed 07/30/18] PMH/Surg Hx/FS Hx/Imm Hx Endocrine/Hematology History: Reports: Hx Anticoagulant Therapy, Hx Diabetes, Hx Thyroid Disease, Hx Anemia Cardiovascular History: Reports: Hx Hypertension, Hx Valvular Heart Disease Respiratory History: Denies: Hx Asthma GI History: Denies: Hx Ulcer Musculoskeletal History: Reports: Hx Arthritis - Rheumatoid, Hx Osteoporosis, Other Musculoskeletal History - fractures; pt not sure of left tibial fracture Comment Only: Hx Rheumatoid Arthritis - OSTIO ARTHRITIS Sensory History: Reports: Hx Contacts or Glasses - not with her, at carpio, Hx Hearing Aid - not with her, pt refuses use, Hx 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 Opthamlomology History: Reports: Hx Contacts or Glasses - not with her, at carpio - Cancer History Cancer Type, Location and Year: RT BREAST CA - Surgical History Surgery Procedure, Year, and Place: OPEN HEART SURGERY,LEFT HIP REPLACEMENT - Immunization History Date of Tetanus Vaccine: Unknown Infectious Disease History: No Infectious Disease History: Denies: Hx Clostridium Difficile, Hx Hepatitis, Hx Human Immunodeficiency Virus (HIV), Hx of Known/Suspected MRSA, Hx Shingles, Hx Tuberculosis, Hx Known/ Suspected VRE, Hx Known/Suspected VRSA, History Other Infectious Disease, Traveled Outside the in Last 30 Days - Family History Known Family History: Positive: Cardiac Disease - Social History Alcohol Use: None Hx Substance Use: No Substance Use Type: Reports: None Hx Tobacco Use: Yes Smoking Status (MU): Former Smoker Type: Cigarettes Amount Used/How Often: cannot remember Review of Systems Negative: Fever, Chills Negative: Erythema Negative: Sore Throat Negative: Chest Pain Positive: Shortness Of Breath, Cough Negative: Abdominal Pain, Vomiting, Nausea Negative: dysuria, hematuria Musculoskeletal: Other - POS: right leg pain, right hip pain Negative: Myalgia, Edema Negative: Rash Neurological: Other - POS: right leg pain All Other Systems Reviewed And Are Negative: Yes Physical Exam - Summary Physical Exam Summary: Constitutional: Well-developed, Well-nourished, Alert, Cooperative Skin: Warm, Dry HENT: Normocephalic; No Racoons eyes; No hensley's sign; No abrasion; No contusion; No hemotympanum; No maxilla facial tenderness or instability; Dentition are smooth; No dental trauma; No trismus Eyes: EOM normal, PERRL Neck: Trachea is midline. No stridor; No JVD; No step off; No posterior cervical spine tenderness Cardio: Rhythm regular, rate normal Heart sounds normal; Intact distal pulses; The pedal pulses are 2+ and symmetric. Radial pulses are 2+ and symmetric. Pulmonary/Chest wall: Effort normal; Rales bilaterally; Equal chest rise; No flail segment; No rib tenderness; No sternal tenderness Abd: Soft, Appearance normal. No distension; No tenderness; No palpable pulsatile mass; No Cullens sign; No Elias-Turners sign Musculoskeletal: Full ROM and no tenderness at ankles, shoulders, elbows; No joint swelling; No vertebral body tenderness; No paraspinal tenderness; No step off or deformity of the spine; Pelvis is stable to lateral compression and rock. Right leg is shortened and externally rotated. Neuro: Alert, Oriented x3, Strength 5/5 all extremities. : No blood at urethral meatus Psych: Mood and affect Normal Triage Information Reviewed: Yes Vital Signs On Initial Exam: Initial Vitals Temp Pulse Resp BP Pulse Ox 98 F 85 20 173/83 92 07/30/18 16:35 07/30/18 16:35 07/30/18 16:35 07/30/18 16:35 07/30/18 16:35 Vital Signs Reviewed: Yes Diagnostics - Vital Signs Vital Signs Temp Pulse Resp BP Pulse Ox 07/30/18 16:35 98 F 85 20 173/83 92 - Laboratory Result Diagrams: 07/30/18 18:22 07/30/18 18:22 Lab Statement: Any lab studies that have been ordered have been reviewed, and results considered in the medical decision making process. - Radiology Chest XR Radiology Interpretation Completed By: ED Physician Summary of Radiographic Findings: pulmonary edema vs infiltrates Right hip and pelvis XR Radiology Interpretation Completed By: ED Physician Summary of Radiographic Findings: Right femoral neck fracture. - EKG 18:08 Cardiac Rate: NL - at 86 bpm EKG Rhythm: Sinus Rhythm Summary of EKG Findings: No STEMI. Re-Evaluation - Re-Evaluation First Eval Re-Evaluation Time: 18:41 Comment: Dr. Gregory, orthopedist, at bedside. Adult Trauma Course/Dx - Course Assessment/Plan: Pt is an 88 y/o female who presents to the ED via EMS from [place] for right leg and right hip pain s/p fall today. Pt reports she fell on tile floor while in the bathroom. Denies head strike or LOC. Pt also reports cough and SOB. In the ED course the pt was given Dilaudid, solu-medrol, lasix, duoneb. Chest XR shows pulmonary edema vs infiltrates. Right hip XR shows right femoral neck fracture. Dr. Gregory came to the ED to evaluate the pt. Discussed the case with Dr. Carter, hospitalist, who accepted the pt for admission. - Diagnoses Provider Diagnoses: Femoral neck fracture, Hypoxia - Physician Notifications Discussed Care Of Patient With: Poonam Gregory Time Discussed With Above Provider: 18:36 Instructed by Provider To: Other - Dr. Gregory, orthopedist, who will come see the pt in the ED. [19:12] I discussed with Dr. Carter, hospitalist, who accepted the pt for admission. Discharge - Sign-Out/Discharge Documenting (check all that apply): Patient Departure - [place] [facility] [place] Discharge Plan Condition: Stable Disposition: ADMITTED TO [facility] Referrals: Floresita Christiansen MD [Primary Care Provider] - - Attestation Statements Document Initiated by Scribe: Yes Documenting Scribe: Debbie Bhakta Provider For Whom Scribe is Documenting (Include Credential): Mauricio Mata MD Scribe Attestation: Debbie Duarte, scribed for Mauricio Mata MD on 07/30/18 at 1927. Status of Scribe Document: Ready
[2018-07-30] MEDS ORDERED: HYDROmorphone INJ1* 1 MG/ML SYRINGE IV SLOW PU ONE (18:00)
[2018-07-30 18:29] LABS: Hematocrit 38 % (35-47); Mean Corpuscular HGB Conc 32 g/dl (31-36); Mean Corpuscular Hemoglobin 30 pg (27-31); Mean Corpuscular Volume 95 fL (80-97); Mean Platelet Volume 9.1 fL (7.4-10.4); Platelet Count 131 10^3/ul (150-450); Red Blood Count 3.95 10^6/ul (4.00-5.40); Red Cell Distribution Width 18 % (10.5-15)
[2018-07-30 18:39] LABS: Activated Partial Thrombo Time 27.3 seconds (26.0-36.3); INR 1.31 (0.77-1.02)
[2018-07-30 18:45] LABS: Albumin 3.7 g/dL (3.2-5.2); Albumin/Globulin Ratio 1.1 (1-3); BUN/Creatinine Ratio 35.2 (8-20); Calcium 9.5 mg/dL (8.6-10.3); EGFR African American 48.9 (>60); EGFR Non-African American 40.4 (>60); Globulin 3.4 g/dL (2-4); Potassium 3.7 mmol/L (3.5-5.0); Total Bilirubin 1.1 mg/dL (0.2-1.0); Total Protein 7.1 g/dL (6.4-8.9)
[2018-07-30] MEDS ORDERED: Furosemide IV* 10 MG/ML VIAL (40 MG) IV SLOW PU ONE (19:16)
[2018-07-30] MEDS ORDERED: methylPREDNISolone 125 MG* 2 ML VIAL IV ONE (19:17)
[2018-07-30] MEDS ORDERED: Albuterol/Ipratropium NEB.SOL* Albuterol 2.5 MG/Ipratropium 0.5 MG 3 ML INH ONE (19:18)
[2018-07-30] MEDS ORDERED: Al Hydrox/Mg Hydrox/Simet LIQ* 30 ML UDC PO PRN (19:48)
[2018-07-30] MEDS ORDERED: Docusate CAP* 100 MG PO PRN (19:48)
[2018-07-30] MEDS ORDERED: Ondansetron INJ* 2 MG/ML VIAL IV PRN (19:48)
[2018-07-30] MEDS ORDERED: Senna TAB PO PRN (19:48)
[2018-07-30] MEDS ORDERED: Loperamide CAP* 2 MG PO PRN (19:54)
[2018-07-30 20:00] LABS: Troponin I 0.05 ng/mL (<0.04)
[2018-07-30] MEDS ORDERED: Dextrose 50% Syringe 50 ML* 25 GM/50 ML SYRINGE IV PUSH PRN (20:05)
--- NOTE | 2018-07-30 20:31 | CONS ---
CC: PCP, Dr. Christiansen * CONSULTATION REPORT: DATE OF CONSULT: 07/30/18 CHIEF COMPLAINT: Right hip pain. HISTORY OF PRESENT ILLNESS: Briefly, Ms. Miles is an 88-year-old female, who presents with right hip pain with a right hip displaced femoral neck fracture. She has a history of diabetes, chronic kidney disease, hypertension, hyperlipidemia, coronary artery disease, CVA x2, AFib, hypothyroidism, colitis, B12 deficiency, history of breast cancer, repeated falls. She had a recent cervical neck fracture. She has a history of left hip fracture treated with hemiarthroplasty [place] [address] Rivas at [facility]. She lives in [facility]. She walks with a walker. She lost her balance and fell on the way to dinner. She has a daughter who is local, but has a procedure today, is not at her bedside. She denies numbness or tingling, but she is somewhat short of breath and is satting low. She is very hard of hearing. PAST MEDICAL HISTORY: Diabetes, chronic kidney disease, history of falls, hypertension, hyperlipidemia, coronary artery disease, CVA x2, atrial fibrillation, hypothyroidism, microscopic colitis, B12 deficiency, history of breast cancer, recent neck fracture, major depressive disorder, memory deficiency. PAST SURGICAL HISTORY: CABG, left hip hemiarthroplasty. MEDICATIONS: Include: 1. B12. 2. Aspirin 81 mg. 3. Budesonide. 4. Caltrate. 5. Levothyroxine. 6. Omeprazole. 7. Sertraline. 8. Tab-A-Ira. 9. Pravastatin. 10. Tylenol. 11. Guaifenesin. 12. Hydrocodone. 13. Loperamide. ALLERGIES: To CEFUROXIME, IODINE, MORPHINE, NITROGLYCERIN. FAMILY HISTORY: Significant for heart disease in her uncle. No diabetes. Son had breast cancer. Son had lymphoma. SOCIAL HISTORY: She is a previous smoker. She denies alcohol. Her daughter is Eunice Ladd. She walks with an assistive device. She lives at [place] and she has mild memory impairment. REVIEW OF SYSTEMS: A 14-point review of systems reviewed with the patient and significant for hard of hearing, right hip pain, history of recent neck pain. No numbness or tingling. She is somewhat short of breath. PHYSICAL EXAM: Vitals: Temperature 98, pulse rate of 88, O2 saturation 86% on room air, blood pressure 127/92. She is in no acute distress. She is well developed and well nourished. She is oriented x3. She has pleasant mood and normal affect. Good balance and coordination of the extremities. EOMI. Neck is in a collar that has clearly been present for a while. She is able to move her upper extremities without any difficulty. Heart has regular rate and rhythm. Chest: She respires easily. Abdomen is soft and nontender. She has right hip with slight external rotation, not obviously shortened. She is able to flex and extend her toes, dorsiflex and plantar flex her ankles. She is sensate to light touch about the first dorsal webspace; medial, lateral, dorsal and plantar foot. She has 2+ PT pulse. Calf is soft and nontender. DIAGNOSTIC STUDIES/LAB DATA: X-rays were reviewed that demonstrate a displaced femoral neck fracture. White blood cell count of 11, hematocrit of 38, platelet count 131. INR 1.31. Sodium is 142, potassium 3.7, chloride is 110, carbon dioxide 22, BUN 44, creatinine 1.25, glucose 178, calcium is 9.5. ASSESSMENT AND PLAN: She has a right hip displaced femoral neck fracture. She is living in assisted living and ambulates with a walker. She does have frequent falls, which puts her at a high risk, but I would recommend right hip hemiarthroplasty. I reviewed the risks and benefits of surgery. Risks include , but are not limited to, bleeding, infection; damage to nerves, vessels, surrounding structures; wound nonhealing; persistent pain; need for further surgery; scarring; stiffness; incomplete relief of symptoms; risk of anesthesia. I will speak with her daughter and talk to her about surgical treatment. She currently is having some hypoxia and being worked up for possible pneumonia. She will require medical risk optimization. We will need to find out who is managing her neck to make sure that we can take care of her surgery as she will likely need to be laterally placed. We will continue to follow the patient in the hospital. Addendum: Pt is hypoxic and is being transferred to ICU. Her medical status is to be determined tomorrow which would confirm whether she is a good candidate for surgery. Other option would be nonoperative and hospice if that is the case. [id number]/[facility] #: [id number] [facility]ALTHPrave[facility]
[2018-07-30] MEDS: HYDROmorphone INJ1* 1 MG/ML SYRINGE IV SLOW PU PRN (21:21)
[2018-07-30 22:28] LABS: Troponin I 0.05 ng/mL (<0.04)
[2018-07-30] MEDS: Atorvastatin* 10 MG TAB PO SCH (22:32)
[2018-07-30] MEDS: Heparin VIAL(*) 5000 UNITS/ML VIAL (FIVE THOUSAND) SUBCUT SCH (22:32)
[2018-07-30 22:33] LABS: Magnesium 1.2 mg/dL (1.9-2.7)
--- NOTE | 2018-07-30 23:31 | HP ---
CC: Florestia Christiansen MD * HISTORY AND PHYSICAL: DATE OF ADMISSION: 07/30/18 TIME OF EVALUATION: 1999 PRIMARY CARE PHYSICIAN: Floresita Christiansen MD CHIEF COMPLAINT: Fall. HISTORY OF PRESENT ILLNESS: This is an 88-year-old female with past medical history of CAD, CKD, diabetes, who presented from [facility] after sustaining a fall. The patient is hard of hearing and is limited with her history. She states she does remember she fell on the floor. She denies hitting her head. She denies blacking out. She states she has been short of breath. Denies any chest pain. Otherwise review of system is limited. When the patient arrived to the emergency room, she was satting in the mid-80s, tachypneic and was found to have right femoral neck fracture as well. In the emergency room, the patient was given Solu-Medrol 125 mg, Dilaudid 1 mg, Lasix 40 mg and DuoNeb and referred to the hospitalist service for further evaluation. On my encounter, the patient states she has pain when she moves. She denies pain in her hip. She denies any headache. No chest pain as mentioned. Otherwise, review of system is limited. PAST MEDICAL HISTORY: 1. Diabetes, diet controlled. 2. History of CKD. 3. History of fall. 4. Hypertension. 5. Hyperlipidemia. 6. CAD. 7. History of CVA x2. 8. History of atrial fibrillation, off anticoagulation. 9. History of hypothyroidism. 10. History of microscopic colitis. 11. History of B12 deficiency. 12. History of breast cancer. Recent admission in April 2018, diagnosed with cervical spine traumatic vertebral fracture with collar in place. PAST SURGICAL HISTORY: 1. History of coronary artery bypass graft. 2. Left hip replacement. MEDICATIONS: 1. Vitamin B12 1000 mcg p.o. daily. 2. Aspirin 81 mg p.o. daily. 3. Budesonide 9 mg p.o. in the morning. 4. Caltrate and vitamin D daily. 5. Synthroid 50 mcg daily. 6. Omeprazole 20 mg daily. 7. Sertraline 100 mg p.o. daily. 8. Multivitamin daily. 9. Pravastatin 40 mg daily. 10. Tylenol 625 mg every 6 hours as needed. 11. Guaifenesin every 6 hours as needed. 12. Hydrocodone and Tylenol every 4 hours as needed for pain. 13. Loperamide 2 mg every 4 hours as needed for loose stools. ALLERGIES: CEFTIN, IODINE, MORPHINE and NITROGLYCERIN. SOCIAL HISTORY: The patient resides at [facility]. She normally ambulates with a walker. Per records, the patient was a 1 to 2 packs per day smoker, quit nearly 40 years ago. No history of alcohol or illicit drug use. Her healthcare proxy is her daughter, Eunice Ladd. Code status, her MOLST form states she is a CPR and trial period of intubation. FAMILY HISTORY: Reviewed and noncontributory. REVIEW OF SYSTEMS: Limited due to the patient's hard of hearing with significant amount of oxygen blowing and recently receiving Dilaudid. PHYSICAL EXAMINATION GENERAL: Frail elderly female with some mild respiratory distress. VITAL SIGNS: Temp is 98, pulse rate is 80, oxygen saturation is 94% on 6 L, blood pressure 144/109. HEENT: Head is normocephalic. Pupils are pinpoint and reactive. Conjunctivae are injected. Oropharynx: Mucous membranes dry. NECK: The patient has a neck collar in place. RESPIRATORY: Coarse rhonchorous breath sounds bilaterally with some mild increased work of breathing. CARDIAC: Regular rate and rhythm with soft systolic murmur heard throughout. ABDOMEN: Some mild distention. Soft and nontender. EXTREMITIES: +1 edema. Her right lower extremity is shortened and externally rotated. Pain with palpation in her right hip region. NEUROLOGIC: The patient is alert and oriented x2. She is oriented to self and place. No gross focal neurologic abnormalities. LABORATORY DATA: White count is 11, hemoglobin is 12, hematocrit 38, platelets 131. INR is 1.31, sodium 142, potassium 3.7, chloride 110, bicarb 22 , BUN 44, creatinine 1.25, glucose 178. Radiographic data: Per wet read, the patient has a right femoral neck fracture. EKG: Shows normal sinus rhythm with the rate of 86 and non-specific ST changes. Chest x-ray: Concerning for pulmonary edema. ASSESSMENT: This is an 88-year-old female with past medical history of chronic kidney disease, coronary artery disease, atrial fibrillation with frequent falls, presents to the emergency room after a fall at [facility]. According to the records from the [facility], they did state she did hit her head, it is unclear if this was mechanical fall. She is at high risk of falling. Recently found to have a C2 neck fracture as well. Also, the concern is her respiratory status triggering her weakness and leading to her fall. She denies syncope but is unclear of specifics of the fall. Regarding her right femoral neck fracture, the patient appears to be in acute decompensated congestive heart failure and needs to have a respiratory status improved prior to proceeding to the OR. Needs Cardiology evaluation with her comorbidities and her respiratory status she appears to be high risk. She did already receive 40 mg of Lasix in the emergency room. Plan: She will be admitted to the ICU, she may need high flow. She has an allergy to NITRO, so cannot give this. We will place a Vaca, monitor I's and O 's and give her more Lasix if needed. We will order an echocardiogram, keep her on baby aspirin for now. We will check her BNP, trend her trops as well. I did talk with Dr. Roman who is going to send her to Dr. Mariscal for the patient to be evaluated by Cardiology for preop evaluation. Ortho is consulted for her hip fracture. Discussed with them that she needs her respiratory status stablized prior to going to the OR. Will continue pain control. 3. Acute decompensated heart failure. Assessment: The patient presented with her sats in the 80s on arrival. She did state she has been short of breath, unclear of the duration of this respiratory distress. She does have a history of coronary artery disease, stroke, chronic kidney disease. No recent echo in the system. It appears most consistent with acute decompensated heart failure, less likely an infectious process. We will check as mentioned trops, BNP, echo and followup accordingly. 4. Chronic medical problems: We will resume her home medications as prescribed. 5. Fluids, electrolytes and nutrition: Keep her on a diabetic diet with Lispro sliding scale. 6. DVT prophylaxis: The patient scores high risk, placed on heparin subcu t.i.d. 7. Code status. The patient states she is a full code. We will followup with the family as well, as the conversation was limited. PATIENT TIME: Greater than 50 minutes was spent doing history and physical, more than half the time spent in direct patient contact and critical care time. [id number]/[facility] #: [id number] JENNA
[2018-07-31] MEDS ORDERED: Magnesium Sulfate IV* 3 GM in NS 0.9% 100 ML* 100 ML IVPB ONE (02:26)
[2018-07-31] MEDS: HYDROcodone/ACETAMIN 5-325 MG* 1 TAB PO PRN ×3 (04:47→19:56)
[2018-07-31] MEDS: Heparin VIAL(*) 5000 UNITS/ML VIAL (FIVE THOUSAND) SUBCUT SCH ×3 (05:52→22:00)
[2018-07-31] MEDS: HYDROmorphone INJ1* 1 MG/ML SYRINGE IV SLOW PU PRN ×2 (05:59→11:08)
[2018-07-31] MEDS ORDERED: Levothyroxine TAB* 50 MCG TAB PO SCH (06:00)
[2018-07-31 06:28] LABS: Hematocrit 35 % (35-47); Mean Corpuscular HGB Conc 32 g/dl (31-36); Mean Corpuscular Hemoglobin 31 pg (27-31); Mean Corpuscular Volume 97 fL (80-97); Red Blood Count 3.62 10^6/ul (4.00-5.40); Red Cell Distribution Width 18 % (10.5-15); White Blood Count 8.5 10^3/ul (3.5-10.8)
[2018-07-31 06:31] LABS: BUN/Creatinine Ratio 34.4 (8-20); Calcium 9.2 mg/dL (8.6-10.3); EGFR African American 50.3 (>60); EGFR Non-African American 41.6 (>60); Potassium 3.6 mmol/L (3.5-5.0)
[2018-07-31 06:45] LABS: ABS Basophils 0 10^3/ul (0-0.2); ABS Eosinophils 0 10^3/ul (0-0.6); ABS Lymphocytes 0.4 10^3/ul (1.0-4.8); ABS Monocytes 0.2 10^3/ul (0-0.8); ABS Neutrophils 7.8 10^3/ul (1.5-7.7); ABS Nucleated RBC 0 10^3/ul; Eosinophil % 0 %; Lymphocyte % 4.4 %; Mean Platelet Volume 9.4 fL (7.4-10.4); Nucleated Red Blood Cells % 0.1; Platelet Count 93 10^3/ul (150-450)
[2018-07-31] MEDS ORDERED: Sertraline* 100 MG TAB PO SCH (09:00)
[2018-07-31] MEDS ORDERED: Furosemide IV* 10 MG/ML VIAL (40 MG) IV SCH (09:00)
--- NOTE | 2018-07-31 09:45 | ECHO ---
Patient: MEAGHAN ALARCON [facility] Rec#: [id number] : 1930 Date: 07/31/2018 Age: 88y Height: 152 cm / 59.8 in Weight: 67.1 kg / 147.9 lbs Sex: F BSA: 1.64 Room#: ICU 15 Admit Date#: 07/30/2018 Type: Inpatient Referring: Lynette Carter Reading: Nicole Mariscal MD Personal Carer: Jennifer Patel RN RDCS CC: MUNIR CANSECO Transthoracic Echocardiogram Indication: CHF BP: 158/70 HR: 70 Rhythm: NSR Findings History: CAD, CABG, DM, HTN, HLD, CKD, CVA x 2, A. fib, hypothyroid, breast cancer, former smoker Technical Comments: The study is technically limited due to the patient's smoking history. The study was technically limited due to the patient's inability to lay in the left lateral decubitus position. Left Ventricle: The left ventricular chamber size is normal. There is no left ventricular hypertrophy. There is global hypokinesis of the left ventricle with minor regional variation. There is moderate to severely decreased left ventricular systolic function. The estimated ejection fraction is 25-30%. Ventricular septal wall motion has a post-operative appearance. Abnormal left ventricular diastolic function is observed. A thrombus is visualized in the left ventricular apex. The echodense lesion measures 2.0cm x 1.9cm in the A4C view and 1.8cm x 1.7cm in the A2C view. Left Atrium: The left atrium is moderately dilated. Right Ventricle: The right ventricle is not well visualized. The right ventricular cavity size is normal. The right ventricular global systolic function is low normal. Right Atrium: The right atrium is not well visualized. The right atrium is moderately dilated. Aortic Valve: The aortic valve is trileaflet. The aortic valve leaflets are mildly thickened. There is aortic annular calcification. There is no evidence of aortic regurgitation. There is mild aortic stenosis. The mean gradient of the aortic valve is 5 mmHg. The peak instantaneous gradient of the aortic valve is 8 mmHg. Mitral Valve: There is mitral annular calcification. The mitral valve leaflets are mildly thickened. There is mild mitral regurgitation. There is no evidence of mitral stenosis. Tricuspid Valve: The tricuspid valve leaflets are normal. There is moderate tricuspid regurgitation. There is evidence that pulmonary hypertension may be underestimated. There is no tricuspid stenosis. Pulmonic Valve: The pulmonic valve appears normal. There is a trace pulmonic regurgitation. There is no pulmonic stenosis. Pericardium: There is no significant pericardial effusion. Aorta: There is no dilatation of the ascending aorta. The aortic arch is not well visualized. There is no dilation of the aortic root. Pulmonary Artery: The main pulmonary artery is not well visualized. Venous: The venous system is not well visualized. The inferior vena cava is not visualized. Summary: There are changes noted when compared to the previous study done on 03/16/2015, LV EF now is much less from 50-55% then. LV apical thrombus is new. TR now is more. Conclusions The left ventricular chamber size is normal. There is moderate to severely decreased left ventricular systolic function. The estimated ejection fraction is 25-30%. Ventricular septal wall motion has a post-operative appearance. A thrombus is visualized in the left ventricular apex. The echodense lesion measures 2.0cm x 1.9cm in the A4C view and 1.8cm x 1.7cm in the A2C view. The left atrium is moderately dilated. The right ventricular global systolic function is low normal. The right atrium is moderately dilated. There is mild aortic stenosis. There is mild mitral regurgitation. There is moderate tricuspid regurgitation. There is evidence that pulmonary hypertension may be underestimated. There is a trace pulmonic regurgitation. Measurements Name Value Normal Range RVIDd (AP) 2D 3.1 cm (0.9 - 2.6) RVDdMajor (2D) 3.8 cm (2.2 - 4.4) RAd ISD 4CH 6.2 cm (3.4 - 4.9) IVSd (2D) 0.9 cm (0.6 - 1) LVPWd (2D) 0.9 cm (0.6 - 1) LVIDd (2D) 4.6 cm (3.6 - 5.4) LVIDs (2D) 4 cm - LV FS (2D) 13 % (25 - 45) Aortic Annulus 1.9 cm (1.4 - 2.6) Ao root diameter (2D) 2.4 cm (2.1 - 3.5) Ascending Ao 3.2 cm (2.1 - 3.4) LA dimension (AP) 2D 3.6 cm (2.3 - 3.8) LAd ISD 4CH 6.5 cm (2.9 - 5.3) LA ISD 4CH W 4.8 cm (2.5 - 4.5) Name Value Normal Range LA ESV BP (A/L) index 45.4 ml/m2 - Name Value Normal Range MV E-wave Vmax 0.86 m/sec - MV deceleration time 204 msec - MV A-wave Vmax 0.66 m/sec - MV E:A ratio 1.3 ratio - LV septal e' Vmax 0.04 m/sec - LV lateral e' Vmax 0.07 m/sec - LV E:e' septal ratio 21.5 ratio - LV E:e' lateral ratio 12.3 ratio - Name Value Normal Range AV Vmax 1.4 m/sec - AV VTI 42.7 cm - AV peak gradient 8 mmHg - AV mean gradient 5 mmHg - LVOT diameter 1.9 cm - LVOT Vmax 0.82 m/sec - LVOT VTI 18 cm - LVOT peak gradient 3 mmHg - LVOT mean gradient 1 mmHg - DOI (VTI) 0.42 ratio - DOI (Vmax) 0.59 ratio - DREW (continuity Vmax) 1.7 cm2 - DREW (continuity VTI) 1.2 cm2 - Name Value Normal Range TR Vmax 2.4 m/sec - TR peak gradient 23 mmHg - RAP 8 mmHg - RVSP 31 mmHg - Name Value Normal Range PV Vmax 0.67 m/sec -
[2018-07-31] MEDS: Insulin LISPRO* 1 UNITS UNIT SUBCUT SCH ×3 (09:56→19:07)
[2018-07-31] MEDS: Prenatal Vitamin TAB PO SCH (10:00)
[2018-07-31] MEDS: Aspirin EC TAB* 81 MG TAB.EC PO SCH (10:00)
[2018-07-31 10:03] LABS: INR 1.22 (0.77-1.02)
--- NOTE | 2018-07-31 14:16 | PN ---
Progress Note - Progress Note Date of Service: 07/31/18 SOAP: Subjective: []Patient seen at bedside with daughter present. Patient appears to be comfortable, resting, opens eyes and falls back asleep. C-Collar still donned for C2 fx. Still awaiting cardiology clearance and neuro input. Objective: [] Vital Signs Temp 98.8 F 07/31/18 13:15 Pulse 69 07/31/18 13:15 Resp 15 07/31/18 13:15 BP 132/62 07/31/18 13:15 Pulse Ox 94 07/31/18 13:15 Intake & Output 07/30/18 07/31/18 07/31/18 18:59 06:59 18:59 Intake Total 400 30 Output Total 1900 340 Balance -1500 -310 Weight 148 lb 154 lb 8.705 oz Intake: Medicated IV 100 GEN - Magnesium 100 Oral 300 30 Output: Urine 215 Vaca 1900 125 Laboratory Results - last 24 hr 07/30/18 07/30/18 07/30/18 18:22 18:22 18:22 WBC 11.0 H RBC 3.95 L Hgb 12.0 Hct 38 MCV 95 MCH 30 MCHC 32 RDW 18 H Plt Count 131 L MPV 9.1 Neut % (Auto) Lymph % (Auto) [place] % (Auto) Eos % (Auto) Baso % (Auto) Absolute Neuts (auto) Absolute Lymphs (auto) Absolute Monos (auto) Absolute Eos (auto) Absolute Basos (auto) Absolute Nucleated RBC Nucleated RBC % Hem Pathologist Commnt INR (Anticoag Therapy) 1.31 H APTT 27.3 Sodium 142 Potassium 3.7 Chloride 110 Carbon Dioxide 22 Anion Gap 10 BUN 44 H Creatinine 1.25 H Est GFR ( Amer) 48.9 Est GFR (Non-Af Amer) 40.4 BUN/Creatinine Ratio 35.2 H Glucose 178 H POC Glucose (mg/dL) Calcium 9.5 Magnesium Cancelled Total Bilirubin 1.10 H AST 41 H ALT 38 Alkaline Phosphatase 118 H Troponin I 0.05 H* B-Natriuretic Peptide Total Protein 7.1 Albumin 3.7 Globulin 3.4 Albumin/Globulin Ratio 1.1 07/30/18 07/30/18 07/31/18 18:22 21:58 06:00 WBC RBC Hgb Hct MCV MCH MCHC RDW Plt Count MPV Neut % (Auto) Lymph % (Auto) [place] % (Auto) Eos % (Auto) Baso % (Auto) Absolute Neuts (auto) Absolute Lymphs (auto) Absolute Monos (auto) Absolute Eos (auto) Absolute Basos (auto) Absolute Nucleated RBC Nucleated RBC % Hem Pathologist Commnt INR (Anticoag Therapy) APTT Sodium 143 Potassium 3.6 Chloride 109 Carbon Dioxide 22 Anion Gap 12 H BUN 42 H Creatinine 1.22 H Est GFR ( Amer) 50.3 Est GFR (Non-Af Amer) 41.6 BUN/Creatinine Ratio 34.4 H Glucose 156 H POC Glucose (mg/dL) Calcium 9.2 Magnesium 1.2 L Total Bilirubin AST ALT Alkaline Phosphatase Troponin I 0.05 H* B-Natriuretic Peptide > 1300 H Total Protein Albumin Globulin Albumin/Globulin Ratio 07/31/18 07/31/18 07/31/18 06:00 08:56 09:45 WBC 8.5 RBC 3.62 L Hgb 11.0 L Hct 35 MCV 97 MCH 31 MCHC 32 RDW 18 H Plt Count 93 L MPV 9.4 Neut % (Auto) 92.3 Lymph % (Auto) 4.4 [place] % (Auto) 2.8 Eos % (Auto) 0 Baso % (Auto) 0.5 Absolute Neuts (auto) 7.8 H Absolute Lymphs (auto) 0.4 L Absolute Monos (auto) 0.2 Absolute Eos (auto) 0 Absolute Basos (auto) 0 Absolute Nucleated RBC 0 Nucleated RBC % 0.1 Hem Pathologist Commnt INR (Anticoag Therapy) 1.22 H APTT Sodium Potassium Chloride Carbon Dioxide Anion Gap BUN Creatinine Est GFR ( Amer) Est GFR (Non-Af Amer) BUN/Creatinine Ratio Glucose POC Glucose (mg/dL) 169 H Calcium Magnesium Total Bilirubin AST ALT Alkaline Phosphatase Troponin I B-Natriuretic Peptide Total Protein Albumin Globulin Albumin/Globulin Ratio Right lower extremity is mildly shortened and externally rotated right foot well perfused, warm, 2+ DP pulse Assessment: []Displaced right femoral neck fracture C2 fracture- April 2018 Plan: []Patient being worked up by cardiology/ medicine Neurosurgery to see re continued need for C2 immobilization in collar Await clearance for hemiarthroplasty right hip
--- NOTE | 2018-07-31 15:14 | PN ---
Progress Note - Progress Note Date of Service: 07/31/18 Note: Pt seen and examined. Has been seen by crm architect and medicine team. Currently in ICU. Daughter at bedside. Spoke with daughter outside of room. Explained risks. Pt with C2 fracture that may not have healed and is currently in a c-collar. Reviewed that she is high risk for surgery and not yet optimized. Discussed risks of operative and nonoperative intervention. Pt is going to wait for family to help decide. In the meantime, will ask for anesthesia consult for risk evaluation and opinion.
--- NOTE | 2018-07-31 15:48 | PN ---
Subjective Date of Service: 07/31/18 Interval History: Pain control OK. Less SOB now. No new c/o. Objective Active Medications: Acetaminophen (Tylenol Tab*) 650 mg PO Q4H PRN PRN Reason: FEVER/PAIN Hydrocodone Bitart/Acetaminophen ([place] 5-325 Tab*) 1 tab PO Q4H PRN PRN Reason: PAIN Last Admin: 07/31/18 13:59 Dose: 1 tab Al Hydrox/Mg Hydrox/Simethicone (Maalox Plus*) 30 ml PO Q6H PRN PRN Reason: INDIGESTION Aspirin (Aspirin Ec Tab*) 81 mg PO QAM [facility] Last Admin: 07/31/18 10:00 Dose: 81 mg Atorvastatin Calcium (Lipitor*) 10 mg PO BEDTIME [facility]; Protocol Last Admin: 07/30/18 22:32 Dose: 10 mg Dextrose (D50w Syringe 50 Ml*) 12.5 gm IV PUSH .FOR FS < 60 - SS PRN PRN Reason: FS < 60 Docusate Sodium (Colace Cap*) 100 mg PO BID PRN PRN Reason: CONSTIPATION Furosemide (Lasix Iv*) 40 mg IV DAILY [facility] Last Admin: 07/31/18 10:00 Dose: 40 mg Heparin Sodium (Porcine) (Heparin Vial(*)) 5,000 units SUBCUT Q8HR [facility] Last Admin: 07/31/18 13:59 Dose: 5,000 units Hydromorphone HCl (Dilaudid Inj1s*) 0.5 mg IV SLOW PU Q4H PRN PRN Reason: PAIN Last Admin: 07/31/18 11:08 Dose: 0.5 mg Insulin Human Lispro (Humalog*) 0 units SUBCUT AC [facility]; Protocol Last Admin: 07/31/18 13:58 Dose: Not Given Levothyroxine Sodium (Synthroid Tab*) 50 mcg PO DAILY@0600 [facility] Last Admin: 07/31/18 05:52 Dose: 50 mcg Loperamide HCl (Imodium Cap*) 2 mg PO Q4H PRN PRN Reason: LOOSE STOOLS Multivitamins ( Vitamin Tab*) 1 tab PO DAILY [facility] Last Admin: 07/31/18 10:00 Dose: 1 tab Ondansetron HCl (Zofran Inj*) 4 mg IV Q4H PRN PRN Reason: NAUSEA/VOMITING Senna (Senokot Tab*) 1 tab PO BID PRN PRN Reason: CONSTIPATION Sertraline HCl (Zoloft*) 100 mg PO DAILY [facility] Last Admin: 07/31/18 10:00 Dose: 100 mg Vital Signs - 8 hr 07/31/18 07/31/18 07/31/18 08:00 08:30 09:00 Temperature 98.4 F 98.6 F Pulse Rate 68 75 Respiratory 13 20 15 Rate Blood Pressure 139/56 140/76 (mmHg) O2 Sat by Pulse 98 93 Oximetry 07/31/18 07/31/18 07/31/18 10:00 10:01 10:33 Temperature 98.6 F 98.8 F 98.6 F Pulse Rate 73 86 73 Respiratory 14 16 15 Rate Blood Pressure 152/70 148/74 (mmHg) O2 Sat by Pulse 96 96 95 Oximetry 07/31/18 07/31/18 07/31/18 11:00 11:06 11:08 Temperature 98.8 F Pulse Rate 75 Respiratory 16 17 18 Rate Blood Pressure 155/73 (mmHg) O2 Sat by Pulse 93 Oximetry 07/31/18 07/31/18 07/31/18 11:45 12:00 12:01 Temperature 98.6 F 98.8 F Pulse Rate 67 Respiratory 18 14 20 Rate Blood Pressure 106/66 (mmHg) O2 Sat by Pulse 93 Oximetry 07/31/18 07/31/18 07/31/18 13:00 13:12 13:15 Temperature 98.8 F 98.8 F 98.8 F Pulse Rate 70 68 69 Respiratory 14 16 15 Rate Blood Pressure 119/79 132/62 (mmHg) O2 Sat by Pulse 93 93 94 Oximetry Oxygen Devices in Use Now: Nasal Cannula Appearance: Alert, partly up in ICU bed. In fair spirits. [place] J collar in place. Eyes: No Scleral Icterus Respiratory: Clear to Auscultation, Clear to Percussion Cardiovascular: No Edema, - - irreg Extremities: No Edema, No Clubbing, Cyanosis, - Skin: No Rash or Ulcers, No Nodules or Sclerosis, - Neurological: Alert and Oriented x 3, NL Sensation - diminished hearing Result Diagrams: 07/31/18 06:00 07/31/18 06:00 Microbiology and Other Data: Microbiology 07/30/18 21:58 Nasal Screen MRSA (PCR) - Final Nasal Mrsa Not Detected Assess/Plan/Problems-Billing Assessment: - Patient Problems (1) Ischemic cardiomyopathy Current Visit: Yes Status: Acute Code(s): I25.5 - ISCHEMIC CARDIOMYOPATHY SNOMED Code(s): 794715238 Comment: Hx CABG 1994. LVEF 25-30% 07/31/18. LV thrombus seen on echo. Pulmonary edema improved after 2 dose IV furosemide. Note BNP > 1300. (2) Hypothyroidism Current Visit: No Status: Chronic Code(s): E03.9 - HYPOTHYROIDISM, UNSPECIFIED SNOMED Code(s): 80342278 Comment: TSH 7.13 06/02/18, increase levothyroxine to 75 mcg daily, repeat TSH in 4 weeks. (3) Hyperglycemia Current Visit: Yes Status: Acute Code(s): R73.9 - HYPERGLYCEMIA, UNSPECIFIED SNOMED Code(s): 13026162 Comment: Note A1C 6.5% 07/20/18. Continue Lispro by SS. (4) CKD (chronic kidney disease) Current Visit: No Status: Chronic Code(s): N18.9 - CHRONIC KIDNEY DISEASE, UNSPECIFIED SNOMED Code(s): 282852524 Comment: Est GFR 41.6 on 07/31/18. (5) Afib Current Visit: No Status: Chronic Code(s): I48.91 - UNSPECIFIED ATRIAL FIBRILLATION SNOMED Code(s): 84537490 Comment: Not on AC recently. (6) Left ventricular thrombus Current Visit: Yes Status: Acute Code(s): I51.3 - INTRACARDIAC THROMBOSIS, NOT ELSEWHERE CLASSIFIED SNOMED Code(s): 736749148 Comment: AC would be indicated if no overriding contraindication. Needs family discussion.
--- NOTE | 2018-07-31 15:57 | PN ---
Progress Note - Progress Note Date of Service: 07/31/18 Note: spoke again with patient, anesthesiologist, and Dr Faulkner who is managing the C2 fracture. She is healing her cervical fracture. Will have anesthesiologist discuss recommendations with patients family. Potential for surgery Friday. Will discuss with my partner, Dr Sutherland about plan.
--- NOTE | 2018-07-31 17:07 | PN ---
Progress Note - Progress Note Date of Service: 07/31/18 Note: Briefly, 88 yo with multiple falls, C2 fx, ischemic cardiomyopathy in CHF, with new hip fx. Case discussed with pt, family, and Aileen Gregory and Kaushik. Pt at high risk with or without surgery, I'd estimate her 6 month survival at 50: 50. Dr Faulkner feels we can proceed if we keep collar on and head in neutral position. For several reasons, including her neck and her CHF, a spinal anesthetic would be the anesthesia of choice. However, her INR was elevated, not secondary to meds. This would have to be corrected prior to a spinal. I had a long talk with family and patient. They will decide on whether to proceed with OR, or pursue medication management of her hip pain. But, if they decide for OR, her CHF has to stabilize for a bit, and her INR has to be corrected. Perhaps, if they decide for the hip operation, this might happen by Friday. 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
[2018-07-31] MEDS ORDERED: Phytonadione Oral Solution* 5 MG/25 ML UDC PO ONE (18:30)
--- NOTE | 2018-07-31 18:35 | CONS ---
CC: Dr. Francisco; Dr. Mariscal; Hospitalist Service; Dr. Cohen; Dr. Christiansen; Dr. Gregory CARDIOLOGY CONSULT: DATE OF CONSULT: 07/31/18 HISTORY OF PRESENT ILLNESS: I was asked by hospitalist service to see this 88-year- old female patie nt who had a fall and apparently had a fracture of the right femoral neck. Cardiology consult was fu rther requested for preop evaluation given her known history of comorbidities and significant CAD. T he patient does have a known history of coronary artery disease, followed up by Dr. Francisco, last seen in October 2017. She does have a known history of coronary artery disease, coronary artery bypass gra fting, history of hyperlipidemia, hypertension, history of CVA, history of myocardial infarction, his tory of atrial fibrillation, chronic kidney disease, diabetes mellitus, history of GI bleed. She has no history of chest pain and apparently presented from [facility]. A few months ago, she had a fall actually and she had some issues with the neck. She was hospitalized because of her fracture of the right femoral neck. In the emergency room, she did receive Solu-Medrol 125 mg and La six 40 mg because of the shortness of breath and subsequently she was hospitalized. She is very hard of hearing. She is a very poor historian. Evaluation was obtained from medical records, hospitalis t notes, and cardiology notes. No history of fever. No nausea, no vomiting, no hematochezia. No sk in rash. No abdominal pain. No syncope. No swelling of the lower extremity was appreciated. PAST MEDICAL HISTORY: Her past medical history is extensive including history of colitis; history of vitamin B12 deficiency; breast cancer; hypothyroidism; atrial fibrillation, off anticoagulation; his tory of CVA x2; coronary artery disease; hyperlipidemia; hypertension; CABG; chronic kidney disease; history of multiple falls in the past; diabetes mellitus. PAST SURGICAL HISTORY: History of left hip replacement, history of coronary artery bypass grafting i n 1995. MEDICATIONS: As an outpatient include: 1. Vitamin B12 1000 mcg daily. 2. Aspirin 81 mg daily. 3. Synthroid 50 mcg daily. 4. Omeprazole 20 mg daily. 5. Multivitamins daily. 6. Pravachol 40 mg daily. 7. She is also on hydrocodone. 8. Tylenol q.4 hours p.r.n. ALLERGIES: She is allergic to IODINE, CEFTIN, MORPHINE, and NITROGLYCERIN. SOCIAL HISTORY: The patient used to smoke. She quit many years ago. No history of alcohol or illic it drug use. REVIEW OF SYSTEMS: Review of all other systems essentially is negative. PHYSICAL EXAM: She is frail, elderly. She is a poor historian. She is hard of hearing. Vitals: B lood pressure is 132/62, pulse is 69, respiratory rate 15, temperature 98.8. Head and Neck: Normoce phalic, atraumatic. Head, Ears, Nose, and Throat: Essentially benign. Neck: Supple. JVP is not e levated, no carotid bruits. Chest: Diminished air entry at the bases. No rales , no wheezes. Hear t: Normal S1, S2. No added sounds. There is a grade 2/6 systolic murmur in the left sternal border. Abdomen: Benign. Positive bowel sounds. Extremities: No edema, no cyanosis, no clubbing. Skin: Normal. Psych: Difficult to evaluate. HEALTH AND PHYSICAL EDUCATION PROFESSOR: No focal deficit is appreciated. DIAGNOSTIC STUDIES/LAB DATA: Her labs showed the following: White blood cell 8.5, hemoglobin 11, he matocrit 35, and platelets 93. Chemistry: Sodium 143, potassium 3.6, chloride 109, BUN 42, creatini ne 1.22. LFTs borderline elevated. Troponin 0.05 and 0.05. BNP was more than 1300. Her EKG showed sinus rhythm, PACs, and old anterior wall PR. Her echocardiogram done today showed EF 25%. There is a large epical thrombus. There is mild aortic stenosis and mild mitral insufficiency . IMPRESSION: The patient is an 88-year-old female patient with: 1. Presentation after a fall with a fracture of the right femoral neck. 2. Coronary artery disease with a history of coronary artery bypass graft in 1995. 3. Severe cardiomyopathy with EF 25%. 4. Congestive heart failure secondary to her severe cardiomyopathy with elevated BNP. 5. Mild aortic stenosis and mild mitral insufficiency. 6. Large epical thrombus of the left ventricle. 7. Abnormal EKG as described. 8. History of cerebrovascular accident and atrial fibrillation. 9. Systemic arterial hypertension and diabetes mellitus. 10. Hypothyroidism. 11. History of multiple falls in the past. PLAN: The patient is considered high risk with high comorbidities based on her advanced age, severe cardiomyopathy., known CAD, bypass surgery more than 20 years ago, and history of CVA, hypertension, and diabetes. I have discussed this at length with Dr. Cohen and with Dr. Gregory in person. The radha dixon is a poor historian, hard of hearing. I understand further discussion with the patient's famil y about a final decision. There is no further cardiac testing needed at the present time to optimize or change her risk. She is still considered very high risk. I recommend Lasix, beta-addison, ELINOR i nhibitor given her coronary artery disease and severe cardiomyopathy as well as aspirin, heparin as s he is already doing for now. Daily weights, I's and O's. If decision to proceed with surgery, it is important to keep in mind this patient is considered, as I indicated, high risk to proceed based on the above mentioned comorbidities. TIME SPENT: More than half of at least 60 to 65 plus minutes was spent in further discussion, counse ling mode, and making further recommendations. [id number]/[facility] #: [id number]
[2018-07-31] MEDS: Atorvastatin* 10 MG TAB PO SCH (21:00)
--- NOTE | 2018-07-31 23:58 | CONS ---
AMENDED REPORT NOW INCLUDES DATE OF CONSULT CONSULTATION NOTE: DATE OF CONSULT: 07/31/18 HISTORY OF PRESENT ILLNESS: The patient is a very pleasant 88-year-old female with multiple medical problems including coronary artery disease, CKD, diabetes , who was admitted after reported a fall in [facility]. The patient was followed in our clinic by MATTHEW Dick, and Dr. Haywood for a previous C2 fracture diagnosed on 05/19/18. The patient at that time had C2 type-3 fracture and was treated with cervical collar. After the fall, the patient did not lose her consciousness. She denies any neck or back pain. She gets chronic neck pain that has significantly improved as she reports. The patient was diagnosed with right hip fracture and complaints of right hip pain. She denies any weakness, numbness, or tingling of her extremities. She has decreased range of motion in the left shoulder as her baseline and she has limited mobility on the right lower extremity. The patient, according to her daughter, used to walk with a walker and was wearing Depends. The patient lives in [facility]. PAST MEDICAL HISTORY: Diabetes, CKD, hypertension, hyperlipidemia, coronary artery disease, CVA, atrial fibrillation, hypothyroidism, B12 deficiency, breast cancer. PAST SURGICAL HISTORY: Coronary artery bypass surgery, left hip placement. HOME MEDICATIONS: 1. Vitamin B12. 2. Aspirin 81. 3. Budesonide. 4. Caltrate and vitamin D. 5. Synthroid. 6. Omeprazole. 7. Sertraline. 8. Multivitamin. 9. Pravastatin. 10. Tylenol. 11. Guaifenesin. 12. Hydrocodone and Tylenol. 13. Loperamide. ALLERGIES: CEFTIN, IODINE, MORPHINE, and NITROGLYCERINE. FAMILY HISTORY: Noncontributory. SOCIAL HISTORY: Tobacco negative, quit 40 years ago; alcohol negative; recreational drug use negative. Healthcare proxy is her daughter, Eunice Springer. PHYSICAL EXAMINATION: The patient is in no acute distress. She is awake and alert, oriented x2 to 3. She has decreased hearing. Cranial nerves II through XII are grossly intact. Motor 4 to 5/5 in all extremities with the exception of left upper extremity which has decreased range of motion in the left shoulder as a baseline and decreased range of motion on the right lower extremity, possibly as sequelae of right hip fracture. Sensory is grossly intact to light touch. Deep tendon reflexes +1 bilaterally in the upper extremities, +1 in the left lower extremity, right lower extremity was not examined because of the fracture and the patient's discomfort. No clonus, no Babinski. [place] is negative. The patient has no tenderness to palpation of cervical, thoracic, or lumbar spine. She has range of motion of the cervical spine when the collar was removed. DIAGNOSTIC STUDY: The patient had a CT scan of the brain that revealed no acute injuries. The patient had also CT scan of her cervical spine that reveals again the C2 type-3 fracture without evidence of displacement. There are some indications of advancement in the healing process. ASSESSMENT: The patient is a very pleasant 88-year-old female with history of C2 type-3 fracture since 05/19/18 with a new fall and right hip fracture. PLAN: The patient at this point seems to be healing from her cervical spine fracture. Nevertheless, the healing process is not complete and the neck and her cervical spine cannot be considered to be stable. We would recommend maintaining [place] J collar on at all times and followup in our office in approximately 1 month with a new set of x-rays. In the interim, if intubation is necessary, the patient should have her [place] J collar on at all times and to be intubated in the neutral position as well as maintain her cervical spine in alignment in neutral position throughout the surgery. We will be happy to see the patient in our office with a new set of x-rays. Thank you for allowing us to participate in the care of this patient. Please do not hesitate to contact our office in case you have any further questions or concerns regarding the care of this patient. [id number]/[facility] #: [id number] JENNA
[2018-08-01] MEDS: HYDROcodone/ACETAMIN 5-325 MG* 1 TAB PO PRN ×3 (06:13→18:07)
[2018-08-01] MEDS: Heparin VIAL(*) 5000 UNITS/ML VIAL (FIVE THOUSAND) SUBCUT SCH ×2 (06:13→14:15)
[2018-08-01] MEDS: Levothyroxine TAB* 75 MCG TAB PO SCH (06:13)
[2018-08-01 07:23] LABS: ABS Basophils 0 10^3/ul (0-0.2); ABS Eosinophils 0.1 10^3/ul (0-0.6); ABS Lymphocytes 1.3 10^3/ul (1.0-4.8); ABS Monocytes 1.1 10^3/ul (0-0.8); ABS Neutrophils 8.4 10^3/ul (1.5-7.7); ABS Nucleated RBC 0 10^3/ul; Eosinophil % 0.5 %; Hematocrit 32 % (35-47); Hemoglobin 10.4 g/dl (12.0-16.0); Lymphocyte % 11.7 %; Mean Corpuscular HGB Conc 33 g/dl (31-36); Mean Corpuscular Hemoglobin 31 pg (27-31); Mean Corpuscular Volume 95 fL (80-97); Mean Platelet Volume 9.7 fL (7.4-10.4); Nucleated Red Blood Cells % 0.1; Platelet Count 102 10^3/ul (150-450); Red Blood Count 3.37 10^6/ul (4.00-5.40); Red Cell Distribution Width 18 % (10.5-15); White Blood Count 10.9 10^3/ul (3.5-10.8)
[2018-08-01 07:44] LABS: BUN/Creatinine Ratio 36.4 (8-20); Calcium 8.9 mg/dL (8.6-10.3); EGFR African American 42.9 (>60); EGFR Non-African American 35.5 (>60); Potassium 3.3 mmol/L (3.5-5.0)
--- NOTE | 2018-08-01 08:27 | PN ---
Subjective Interval History: Some cough. Objective Active Medications: Acetaminophen (Tylenol Tab*) 650 mg PO Q4H PRN PRN Reason: FEVER/PAIN Hydrocodone Bitart/Acetaminophen ([place] 5-325 Tab*) 1 tab PO Q4H PRN PRN Reason: PAIN Last Admin: 08/01/18 06:13 Dose: 1 tab Al Hydrox/Mg Hydrox/Simethicone (Maalox Plus*) 30 ml PO Q6H PRN PRN Reason: INDIGESTION Aspirin (Aspirin Ec Tab*) 81 mg PO QAM [facility] Last Admin: 07/31/18 10:00 Dose: 81 mg Atorvastatin Calcium (Lipitor*) 10 mg PO BEDTIME [facility]; Protocol Last Admin: 07/31/18 21:00 Dose: 10 mg Dextrose (D50w Syringe 50 Ml*) 12.5 gm IV PUSH .FOR FS < 60 - SS PRN PRN Reason: FS < 60 Docusate Sodium (Colace Cap*) 100 mg PO BID PRN PRN Reason: CONSTIPATION Furosemide (Lasix Tab*) 20 mg PO DAILY [facility] Heparin Sodium (Porcine) (Heparin Vial(*)) 5,000 units SUBCUT Q8HR [facility] Last Admin: 08/01/18 06:13 Dose: 5,000 units Hydromorphone HCl (Dilaudid Inj1s*) 0.5 mg IV SLOW PU Q4H PRN PRN Reason: PAIN Last Admin: 07/31/18 11:08 Dose: 0.5 mg Insulin Human Lispro (Humalog*) 0 units SUBCUT AC [facility]; Protocol Last Admin: 07/31/18 19:07 Dose: 5 units Levothyroxine Sodium (Synthroid Tab*) 75 mcg PO DAILY@0600 [facility] Last Admin: 08/01/18 06:13 Dose: 75 mcg Loperamide HCl (Imodium Cap*) 2 mg PO Q4H PRN PRN Reason: LOOSE STOOLS Multivitamins ( Vitamin Tab*) 1 tab PO DAILY [facility] Last Admin: 07/31/18 10:00 Dose: 1 tab Ondansetron HCl (Zofran Inj*) 4 mg IV Q4H PRN PRN Reason: NAUSEA/VOMITING Potassium Chloride (Klor Con Er Tab*) 20 meq PO TID [facility] Senna (Senokot Tab*) 1 tab PO BID PRN PRN Reason: CONSTIPATION Sertraline HCl (Zoloft*) 100 mg PO DAILY [facility] Last Admin: 07/31/18 10:00 Dose: 100 mg Vital Signs - 8 hr 08/01/18 08/01/18 08/01/18 01:00 02:00 03:00 Temperature 100.2 F 100.2 F 100.4 F Pulse Rate 72 72 74 Respiratory 26 21 23 Rate Blood Pressure 137/78 130/72 141/77 (mmHg) O2 Sat by Pulse 99 98 99 Oximetry 08/01/18 08/01/18 08/01/18 04:00 05:00 06:00 Temperature 100.4 F 100.4 F 100.2 F Pulse Rate 72 70 71 Respiratory 25 26 22 Rate Blood Pressure 136/75 138/70 141/66 (mmHg) O2 Sat by Pulse 97 97 98 Oximetry 08/01/18 07:00 Temperature 100.2 F Pulse Rate 70 Respiratory 23 Rate Blood Pressure 116/91 (mmHg) O2 Sat by Pulse 98 Oximetry Oxygen Devices in Use Now: Nasal Cannula Appearance: Alert, sitting up on ICU bed. Sleepy but responds appropriately. Looks comfortable, resp quiet, no cough during my visit. Respiratory: Symmetrical Chest Expansion and Respiratory Effort, Clear to Auscultation, Clear to Percussion Cardiovascular: No Edema Extremities: No Edema, No Clubbing, Cyanosis, - Skin: No Rash or Ulcers, No Nodules or Sclerosis, - Neurological: NL Sensation - Passive, sleepy but answers appropriately. Diminished hearing. Result Diagrams: 08/02/18 06:00 08/02/18 06:00 Microbiology and Other Data: Microbiology 07/30/18 21:58 Nasal Screen MRSA (PCR) - Final Nasal Mrsa Not Detected Assess/Plan/Problems-Billing Assessment: - Patient Problems (1) Ischemic cardiomyopathy Current Visit: Yes Status: Acute Code(s): I25.5 - ISCHEMIC CARDIOMYOPATHY SNOMED Code(s): 434096784 Comment: Hx CABG 1994. LVEF 25-30% 07/31/18. LV thrombus seen on echo. Pulmonary edema improved after 2 doses of IV furosemide. Note BNP > 1300. Continue po furosemide, statin, ASA. lisinopril 2.5 mg daily LV thrombus: will discuss with cardiology. (2) Hypothyroidism Current Visit: No Status: Chronic Code(s): E03.9 - HYPOTHYROIDISM, UNSPECIFIED SNOMED Code(s): 06813486 Comment: TSH 7.13 06/02/18, increase levothyroxine to 75 mcg daily, repeat TSH in 4 weeks. (3) Hyperglycemia Current Visit: Yes Status: Acute Code(s): R73.9 - HYPERGLYCEMIA, UNSPECIFIED SNOMED Code(s): 95502639 Comment: Note A1C 6.5% 07/20/18. Change Lispro to corrective scale, BID. (4) CKD (chronic kidney disease) Current Visit: No Status: Chronic Code(s): N18.9 - CHRONIC KIDNEY DISEASE, UNSPECIFIED SNOMED Code(s): 033161340 Comment: Est GFR 41.6 on 07/31/18. BMP 08/02 ordered. (5) Afib Current Visit: No Status: Chronic Code(s): I48.91 - UNSPECIFIED ATRIAL FIBRILLATION SNOMED Code(s): 68982204 Comment: Not on AC recently. (6) Left ventricular thrombus Current Visit: Yes Status: Acute Code(s): I51.3 - INTRACARDIAC THROMBOSIS, NOT ELSEWHERE CLASSIFIED SNOMED Code(s): 300047055 Comment: AC would be indicated if no overriding contraindication. Needs family discussion. (7) Elevated INR Current Visit: Yes Status: Acute Code(s): R79.1 - ABNORMAL COAGULATION PROFILE SNOMED Code(s): 490015660 Comment: Second dose vit K 5 mg po solution 08/01, repeat INR 08/02. (8) Closed right hip fracture Current Visit: Yes Status: Acute Code(s): S72.001A - FRACTURE OF UNSP PART OF NECK OF RIGHT FEMUR, INIT SNOMED Code(s): 772267758 Comment: High risk for surgery, on 08/01 had a family meeting, decided not to go for surgery, and pursue palliative vs hospice care.
[2018-08-01] MEDS ORDERED: Dextrose 50% Syringe 50 ML* 25 GM/50 ML SYRINGE IV PUSH PRN (08:36)
[2018-08-01] MEDS ORDERED: Phytonadione Oral Solution* 5 MG/25 ML UDC PO ONE (08:41)
--- NOTE | 2018-08-01 08:51 | PN ---
Progress Note - Progress Note Date of Service: 08/01/18 SOAP: Subjective: in bed resting, no family in room, unable to answer any questions Objective: Vital Signs Temp Pulse Resp BP Pulse Ox 100.2 F 70 23 116/91 98 08/01/18 07:00 08/01/18 07:00 08/01/18 07:00 08/01/18 07:00 08/01/18 07:00 Laboratory Last Values WBC 10.9 10^3/ul (3.5-10.8) H 08/01/18 06:35 RBC 3.37 10^6/ul (4.00-5.40) L 08/01/18 06:35 Hgb 10.4 g/dl (12.0-16.0) L 08/01/18 06:35 Hct 32 % (35-47) L 08/01/18 06:35 MCV 95 fL (80-97) 08/01/18 06:35 MCH 31 pg (27-31) 08/01/18 06:35 MCHC 33 g/dl (31-36) 08/01/18 06:35 RDW 18 % (10.5-15) H 08/01/18 06:35 Plt Count 102 10^3/ul (150-450) L 08/01/18 06:35 MPV 9.7 fL (7.4-10.4) 08/01/18 06:35 Neut % (Auto) 77.1 % 08/01/18 06:35 Lymph % (Auto) 11.7 % 08/01/18 06:35 Haakon % (Auto) 10.5 % 08/01/18 06:35 Eos % (Auto) 0.5 % 08/01/18 06:35 Baso % (Auto) 0.2 % 08/01/18 06:35 Absolute Neuts (auto) 8.4 10^3/ul (1.5-7.7) H 08/01/18 06:35 Absolute Lymphs (auto) 1.3 10^3/ul (1.0-4.8) 08/01/18 06:35 Absolute Monos (auto) 1.1 10^3/ul (0-0.8) H 08/01/18 06:35 Absolute Eos (auto) 0.1 10^3/ul (0-0.6) 08/01/18 06:35 Absolute Basos (auto) 0 10^3/ul (0-0.2) 08/01/18 06:35 Absolute Nucleated RBC 0 10^3/ul 08/01/18 06:35 Nucleated RBC % 0.1 08/01/18 06:35 Hem Pathologist Commnt 07/31/18 06:00 INR (Anticoag Therapy) 1.22 (0.77-1.02) H 07/31/18 09:45 APTT 27.3 seconds (26.0-36.3) 07/30/18 18:22 Sodium 143 mmol/L (135-145) 08/01/18 06:35 Potassium 3.3 mmol/L (3.5-5.0) L 08/01/18 06:35 Chloride 107 mmol/L (101-111) 08/01/18 06:35 Carbon Dioxide 27 mmol/L (22-32) 08/01/18 06:35 Anion Gap 9 mmol/L (2-11) 08/01/18 06:35 BUN 51 mg/dL (6-24) H 08/01/18 06:35 Creatinine 1.40 mg/dL (0.51-0.95) H 08/01/18 06:35 Est GFR ( Amer) 42.9 (>60) 08/01/18 06:35 Est GFR (Non-Af Amer) 35.5 (>60) 08/01/18 06:35 BUN/Creatinine Ratio 36.4 (8-20) H 08/01/18 06:35 Glucose 140 mg/dL (70-100) H 08/01/18 06:35 POC Glucose (mg/dL) 169 mg/dL (70-100) H 07/31/18 08:56 Calcium 8.9 mg/dL (8.6-10.3) 08/01/18 06:35 Magnesium 1.2 mg/dL (1.9-2.7) L 07/30/18 21:58 Total Bilirubin 1.10 mg/dL (0.2-1.0) H 07/30/18 18:22 AST 41 U/L (13-39) H 07/30/18 18:22 ALT 38 U/L (7-52) 07/30/18 18:22 Alkaline Phosphatase 118 U/L (34-104) H 07/30/18 18:22 Troponin I 0.05 ng/mL (<0.04) H* 07/30/18 21:58 B-Natriuretic Peptide > 1300 pg/mL (<=100) H 07/30/18 18:22 Total Protein 7.1 g/dL (6.4-8.9) 07/30/18 18:22 Albumin 3.7 g/dL (3.2-5.2) 07/30/18 18:22 Globulin 3.4 g/dL (2-4) 07/30/18 18:22 Albumin/Globulin Ratio 1.1 (1-3) 07/30/18 18:22 PE: 1+ DP pulse, right LE externally rotated Assessment: right femoral neck fracture Plan: 1) awaiting clearance for lidia- possibly Friday 2) NWNeelam VICTORIAE
[2018-08-01] MEDS: Aspirin EC TAB* 81 MG TAB.EC PO SCH (09:14)
[2018-08-01] MEDS: Lisinopril TAB* 5 MG PO SCH (09:14)
[2018-08-01] MEDS: Sertraline* 50 MG TAB PO SCH (09:15)
[2018-08-01] MEDS: Prenatal Vitamin TAB PO SCH (09:15)
[2018-08-01] MEDS: Furosemide TAB* 20 MG PO SCH (09:15)
[2018-08-01] MEDS: Potassium Chlor TAB* 20 MEQ TAB.ER PO SCH ×3 (09:15→21:27)
[2018-08-01] MEDS ORDERED: Furosemide IV* 10 MG/ML VIAL (40 MG) IV SLOW PU ONE (09:58)
[2018-08-01] MEDS: Insulin LISPRO* 1 UNITS UNIT SUBCUT SCH ×6 (11:06→21:16)
[2018-08-01] MEDS: HYDROmorphone INJ1* 1 MG/ML SYRINGE IV SLOW PU PRN ×2 (12:38→21:25)
[2018-08-01] MEDS ORDERED: Morphine ORAL CONCENTRATE* 5 MG/0.25 ML ORAL.SYRIN SL PRN (14:01)
[2018-08-01] MEDS ORDERED: Atropine 1% (ORAL/SL)* 15 ML BTL SL PRN (14:02)
--- NOTE | 2018-08-01 14:03 | PN ---
Progress Note - Progress Note Date of Service: 08/01/18 Note: I spoke at length with the daughter and son. The patient requests non-surgical care and Hospice. The family agrees to Hospice care in a SNF. Hospice referral requested, usual meds ordered.
[2018-08-02 06:21] LABS: INR 1.25 (0.77-1.02)
[2018-08-02 06:23] LABS: ABS Basophils 0.1 10^3/ul (0-0.2); ABS Eosinophils 0.3 10^3/ul (0-0.6); ABS Lymphocytes 1.4 10^3/ul (1.0-4.8); ABS Monocytes 0.9 10^3/ul (0-0.8); ABS Neutrophils 6.9 10^3/ul (1.5-7.7); ABS Nucleated RBC 0 10^3/ul; Eosinophil % 3.1 %; Hematocrit 31 % (35-47); Hemoglobin 9.9 g/dl (12.0-16.0); Lymphocyte % 14.1 %; Mean Corpuscular HGB Conc 32 g/dl (31-36); Mean Corpuscular Hemoglobin 31 pg (27-31); Mean Corpuscular Volume 95 fL (80-97); Mean Platelet Volume 9.3 fL (7.4-10.4); Nucleated Red Blood Cells % 0; Platelet Count 96 10^3/ul (150-450); Red Blood Count 3.23 10^6/ul (4.00-5.40); Red Cell Distribution Width 18 % (10.5-15); White Blood Count 9.6 10^3/ul (3.5-10.8)
[2018-08-02 06:34] LABS: Calcium 8.8 mg/dL (8.6-10.3); EGFR African American 47.2 (>60); Potassium 3.7 mmol/L (3.5-5.0)
[2018-08-02] MEDS: Levothyroxine TAB* 75 MCG TAB PO SCH (06:43)
[2018-08-02] MEDS: HYDROmorphone INJ1* 1 MG/ML SYRINGE IV SLOW PU PRN ×2 (07:48→14:55)
--- NOTE | 2018-08-02 08:53 | PN ---
Subjective Date of Service: 08/02/18 Interval History: Had a family meeting yesterday w/ my colleague, decided not to go with the surgery, and would like hospice evaluation. Objective Active Medications: Acetaminophen (Tylenol Tab*) 650 mg PO Q4H PRN PRN Reason: FEVER/PAIN Hydrocodone Bitart/Acetaminophen ([place] 5-325 Tab*) 1 tab PO Q4H PRN PRN Reason: PAIN Last Admin: 08/01/18 18:07 Dose: 1 tab Al Hydrox/Mg Hydrox/Simethicone (Maalox Plus*) 30 ml PO Q6H PRN PRN Reason: INDIGESTION Aspirin (Aspirin Ec Tab*) 81 mg PO QAM [facility] Last Admin: 08/01/18 09:14 Dose: 81 mg Atropine Sulfate (Atropine 1% (Oral/Sl)*) 2 drop SL Q2H PRN PRN Reason: DISCOMFORT Dextrose (D50w Syringe 50 Ml*) 12.5 gm IV PUSH .FOR FS < 60 - SS PRN PRN Reason: FS < 60 Dextrose (D50w Syringe 50 Ml*) 12.5 gm IV PUSH .FOR FS < 60 - SS PRN PRN Reason: FS < 60 Docusate Sodium (Colace Cap*) 100 mg PO BID PRN PRN Reason: CONSTIPATION Furosemide (Lasix Tab*) 20 mg PO DAILY [facility] Last Admin: 08/01/18 09:15 Dose: 20 mg Hydromorphone HCl (Dilaudid Inj1s*) 0.5 mg IV SLOW PU Q4H PRN PRN Reason: PAIN Last Admin: 08/02/18 07:48 Dose: 0.5 mg Insulin Human Lispro (Humalog*) 0 units SUBCUT AC [facility]; Protocol Last Admin: 08/01/18 18:14 Dose: Not Given Insulin Human Lispro (Humalog*) 0 units SUBCUT ACHS [facility]; Protocol Last Admin: 08/01/18 21:16 Dose: Not Given Levothyroxine Sodium (Synthroid Tab*) 75 mcg PO DAILY@0600 [facility] Last Admin: 08/02/18 06:43 Dose: 75 mcg Lisinopril (Prinivil Tab*) 2.5 mg PO DAILY [facility] Last Admin: 08/01/18 09:14 Dose: 2.5 mg Loperamide HCl (Imodium Cap*) 2 mg PO Q4H PRN PRN Reason: LOOSE STOOLS Lorazepam (Ativan Tab(*)) 0.5 mg SL Q4H PRN PRN Reason: ANXIETY Morphine Sulfate (Morphine Oral Concentrate*) 2.5 mg SL Q2H PRN PRN Reason: PAIN Ondansetron HCl (Zofran Inj*) 4 mg IV Q4H PRN PRN Reason: NAUSEA/VOMITING Potassium Chloride (Klor Con Er Tab*) 20 meq PO TID [facility] Last Admin: 08/01/18 21:27 Dose: 20 meq Senna (Senokot Tab*) 1 tab PO BID PRN PRN Reason: CONSTIPATION Sertraline HCl (Zoloft*) 50 mg PO DAILY [facility] Last Admin: 08/01/18 09:15 Dose: 50 mg Vital Signs - 8 hr 08/02/18 08/02/18 08/02/18 01:11 03:30 07:15 Temperature 98.3 F 97.4 F Pulse Rate 69 73 Respiratory 16 16 Rate Blood Pressure 102/59 120/55 (mmHg) O2 Sat by Pulse 98 96 97 Oximetry 08/02/18 07:48 Temperature Pulse Rate Respiratory 18 Rate Blood Pressure (mmHg) O2 Sat by Pulse Oximetry Oxygen Devices in Use Now: Nasal Cannula Appearance: Elderly female, has a cervical collar in place, in bed, not in distress Ears/Nose/Mouth/Throat: Mucous Membranes Moist Respiratory: Clear to Auscultation Cardiovascular: RRR, - - 3/6 systolic murmur best heard at the right upper sternal border Abdominal: NL Sounds; No Tenderness; No Distention Extremities: No Edema Result Diagrams: 08/02/18 06:00 08/02/18 06:00 Microbiology and Other Data: Microbiology 07/30/18 21:58 Nasal Screen MRSA (PCR) - Final Nasal Mrsa Not Detected Assess/Plan/Problems-Billing Assessment: - Patient Problems (1) Closed right hip fracture Current Visit: Yes Status: Acute Code(s): S72.001A - FRACTURE OF UNSP PART OF NECK OF RIGHT FEMUR, INIT SNOMED Code(s): 822190596 Comment: High risk for surgery, on 08/01 had a family meeting, decided not to go for surgery, and pursue palliative vs hospice care. (2) Ischemic cardiomyopathy Current Visit: Yes Status: Acute Code(s): I25.5 - ISCHEMIC CARDIOMYOPATHY SNOMED Code(s): 277154056 Comment: Hx CABG 1994. LVEF 25-30% 07/31/18. LV thrombus seen on echo. Pulmonary edema improved after 2 doses of IV furosemide. Note BNP > 1300. Continue po furosemide, statin, ASA. lisinopril 2.5 mg daily LV thrombus: will discuss with cardiology. (3) CKD (chronic kidney disease) stage 3, GFR 30-59 ml/min Current Visit: No Status: Acute Code(s): N18.3 - CHRONIC KIDNEY DISEASE, STAGE 3 (MODERATE) SNOMED Code(s): 112261628 Comment: Cr improved- 1.29 today. (4) Cervical vertebral closed fracture Current Visit: No Status: Acute Comment: recent fracture has c. spine collar in place (5) DVT prophylaxis Current Visit: Yes Status: Acute Priority: Medium Onset Date: 10/27/14 Code(s): NKC8451 - SNOMED Code(s): 076447994 Comment: SCD (6) Afib Current Visit: No Status: Chronic Code(s): I48.91 - UNSPECIFIED ATRIAL FIBRILLATION SNOMED Code(s): 38560638 Comment: Not on AC recently. (7) DNR (do not resuscitate) Current Visit: Yes Status: Acute (8) Hypothyroidism Current Visit: No Status: Chronic Code(s): E03.9 - HYPOTHYROIDISM, UNSPECIFIED SNOMED Code(s): 26594662 Comment: TSH 7.13 06/02/18, increase levothyroxine to 75 mcg daily, repeat TSH in 4 weeks.
[2018-08-02] MEDS: Insulin LISPRO* 1 UNITS UNIT SUBCUT SCH ×7 (09:24→22:25)
[2018-08-02] MEDS: Potassium Chlor TAB* 20 MEQ TAB.ER PO SCH ×3 (09:30→20:02)
[2018-08-02] MEDS: Sertraline* 50 MG TAB PO SCH (09:30)
[2018-08-02] MEDS: Aspirin EC TAB* 81 MG TAB.EC PO SCH (09:30)
[2018-08-02] MEDS: Furosemide TAB* 20 MG PO SCH (09:30)
[2018-08-02] MEDS: Lisinopril TAB* 5 MG PO SCH (09:30)
[2018-08-02] MEDS: HYDROcodone/ACETAMIN 5-325 MG* 1 TAB PO PRN (12:15)
[2018-08-02] MEDS ORDERED: Magnesium Hydroxide LIQ* 30 ML UDC PO ONE (18:01)
[2018-08-03] MEDS: HYDROmorphone INJ1* 1 MG/ML SYRINGE IV SLOW PU PRN (01:16)
[2018-08-03] MEDS: Levothyroxine TAB* 75 MCG TAB PO SCH (06:00)
--- NOTE | 2018-08-03 08:51 | PN ---
Subjective Date of Service: 08/03/18 Interval History: No overnight issues. Currently confused. Having cough with white colored sputum production Objective Active Medications: Acetaminophen (Tylenol Tab*) 650 mg PO Q4H PRN PRN Reason: FEVER/PAIN Hydrocodone Bitart/Acetaminophen ([place] 5-325 Tab*) 1 tab PO Q4H PRN PRN Reason: PAIN Last Admin: 08/02/18 12:15 Dose: 1 tab Al Hydrox/Mg Hydrox/Simethicone (Maalox Plus*) 30 ml PO Q6H PRN PRN Reason: INDIGESTION Aspirin (Aspirin Ec Tab*) 81 mg PO QAM [facility] Last Admin: 08/02/18 09:30 Dose: 81 mg Atropine Sulfate (Atropine 1% (Oral/Sl)*) 2 drop SL Q2H PRN PRN Reason: DISCOMFORT Dextrose (D50w Syringe 50 Ml*) 12.5 gm IV PUSH .FOR FS < 60 - SS PRN PRN Reason: FS < 60 Dextrose (D50w Syringe 50 Ml*) 12.5 gm IV PUSH .FOR FS < 60 - SS PRN PRN Reason: FS < 60 Docusate Sodium (Colace Cap*) 100 mg PO BID PRN PRN Reason: CONSTIPATION Last Admin: 08/02/18 12:15 Dose: 100 mg Furosemide (Lasix Tab*) 20 mg PO DAILY [facility] Last Admin: 08/02/18 09:30 Dose: 20 mg Hydromorphone HCl (Dilaudid Inj1s*) 0.5 mg IV SLOW PU Q4H PRN PRN Reason: PAIN Last Admin: 08/03/18 01:16 Dose: 0.5 mg Insulin Human Lispro (Humalog*) 0 units SUBCUT AC [facility]; Protocol Last Admin: 08/02/18 18:46 Dose: 4 units Insulin Human Lispro (Humalog*) 0 units SUBCUT ACHS [facility]; Protocol Last Admin: 08/02/18 22:25 Dose: 2 unit Levothyroxine Sodium (Synthroid Tab*) 75 mcg PO DAILY@0600 [facility] Last Admin: 08/03/18 06:00 Dose: 75 mcg Lisinopril (Prinivil Tab*) 2.5 mg PO DAILY [facility] Last Admin: 08/02/18 09:30 Dose: 2.5 mg Loperamide HCl (Imodium Cap*) 2 mg PO Q4H PRN PRN Reason: LOOSE STOOLS Lorazepam (Ativan Tab(*)) 0.5 mg SL Q4H PRN PRN Reason: ANXIETY Morphine Sulfate (Morphine Oral Concentrate*) 2.5 mg SL Q2H PRN PRN Reason: PAIN Ondansetron HCl (Zofran Inj*) 4 mg IV Q4H PRN PRN Reason: NAUSEA/VOMITING Potassium Chloride (Klor Con Er Tab*) 20 meq PO TID [facility] Last Admin: 08/02/18 20:02 Dose: 20 meq Senna (Senokot Tab*) 1 tab PO BID PRN PRN Reason: CONSTIPATION Last Admin: 08/02/18 22:24 Dose: 1 tab Sertraline HCl (Zoloft*) 50 mg PO DAILY [facility] Last Admin: 08/02/18 09:30 Dose: 50 mg Vital Signs - 8 hr 08/03/18 08/03/18 01:16 03:23 Temperature 99.0 F Pulse Rate 72 Respiratory 18 18 Rate Blood Pressure 120/65 (mmHg) O2 Sat by Pulse 99 Oximetry Oxygen Devices in Use Now: Nasal Cannula Appearance: Elderly female lying in bed, cervical collar in place, not in distress. Respiratory: - - coarse breath sounds, minimal bibasilar crackles. Cardiovascular: RRR Abdominal: NL Sounds; No Tenderness; No Distention, No Hepatosplenomegaly Extremities: No Edema Result Diagrams: 08/02/18 06:00 08/02/18 06:00 Microbiology and Other Data: Microbiology 07/30/18 21:58 Nasal Screen MRSA (PCR) - Final Nasal Mrsa Not Detected Assess/Plan/Problems-Billing Assessment: 88F, here with right femur fracture, prior fall had cervical fracture, with c- collar still in place. high risk for surgery, family opted to forego the surgery , awaiting hospice evaluation. - Patient Problems (1) Closed right hip fracture Current Visit: Yes Status: Acute Code(s): S72.001A - FRACTURE OF UNSP PART OF NECK OF RIGHT FEMUR, INIT SNOMED Code(s): 051236475 Comment: High risk for surgery, on 08/01 had a family meeting, decided not to go for surgery, and pursue palliative vs hospice care. (2) CKD (chronic kidney disease) stage 3, GFR 30-59 ml/min Current Visit: No Status: Acute Code(s): N18.3 - CHRONIC KIDNEY DISEASE, STAGE 3 (MODERATE) SNOMED Code(s): 118395996 Comment: Cr improved- 1.29 today. (3) Ischemic cardiomyopathy Current Visit: Yes Status: Acute Code(s): I25.5 - ISCHEMIC CARDIOMYOPATHY SNOMED Code(s): 413277874 Comment: Hx CABG 1994. LVEF 25-30% 07/31/18. LV thrombus seen on echo. Pulmonary edema improved after 2 doses of IV furosemide. Note BNP > 1300. Continue po furosemide, statin, ASA. lisinopril 2.5 mg daily LV thrombus: will discuss with cardiology. (4) Cervical vertebral closed fracture Current Visit: No Status: Acute Comment: recent fracture has c. spine collar in place (5) DVT prophylaxis Current Visit: Yes Status: Acute Priority: Medium Onset Date: 10/27/14 Code(s): ALB7285 - SNOMED Code(s): 062499650 Comment: SCD (6) Afib Current Visit: No Status: Chronic Code(s): I48.91 - UNSPECIFIED ATRIAL FIBRILLATION SNOMED Code(s): 34531151 Comment: Not on AC recently. (7) DNR (do not resuscitate) Current Visit: Yes Status: Acute (8) Hypothyroidism Current Visit: No Status: Chronic Code(s): E03.9 - HYPOTHYROIDISM, UNSPECIFIED SNOMED Code(s): 22688853 Comment: TSH 7.13 06/02/18, increase levothyroxine to 75 mcg daily, repeat TSH in 4 weeks.
[2018-08-03] MEDS: Aspirin EC TAB* 81 MG TAB.EC PO SCH (09:44)
[2018-08-03] MEDS: Potassium Chlor TAB* 20 MEQ TAB.ER PO SCH ×3 (09:44→20:35)
[2018-08-03] MEDS: guaiFENesin ER TAB 600 MG PO SCH ×2 (09:44→20:35)
[2018-08-03] MEDS: Sertraline* 50 MG TAB PO SCH (09:44)
[2018-08-03] MEDS: Furosemide TAB* 20 MG PO SCH (09:44)
[2018-08-03] MEDS: Lisinopril TAB* 5 MG PO SCH (09:44)
[2018-08-03] MEDS: Insulin LISPRO* 1 UNITS UNIT SUBCUT SCH ×7 (09:46→20:46)
[2018-08-03] MEDS: Acetaminophen TAB* 325 MG PO PRN ×3 (09:47→20:35)
--- NOTE | 2018-08-03 10:32 | PN ---
Progress Note - Progress Note Date of Service: 08/03/18 Note: Spoke with pt who is oriented x3 but isn't able to follow a conversation she gets side tracked with the topic and with her pain. I spoke with daughter who is requesting a family meeting which is set up for tomorrow evening at 6pm. She is being discharged to SNF but still deciding about hospice. Will complete [facility] form with them tomorrow.
[2018-08-03] MEDS: LORazepam TAB(*) 0.5 MG SL PRN (22:45)
[2018-08-04] MEDS: HYDROmorphone INJ1* 1 MG/ML SYRINGE IV SLOW PU PRN ×3 (01:09→16:02)
[2018-08-04 05:33] LABS: Hematocrit 33 % (35-47); Hemoglobin 10.6 g/dl (12.0-16.0); Mean Corpuscular HGB Conc 33 g/dl (31-36); Mean Corpuscular Hemoglobin 31 pg (27-31); Mean Corpuscular Volume 95 fL (80-97); Platelet Count 104 10^3/ul (150-450); Red Blood Count 3.42 10^6/ul (4.00-5.40); Red Cell Distribution Width 18 % (10.5-15); White Blood Count 11.3 10^3/ul (3.5-10.8)
[2018-08-04] MEDS: Levothyroxine TAB* 75 MCG TAB PO SCH (05:43)
[2018-08-04] MEDS: Acetaminophen TAB* 325 MG PO PRN ×2 (05:43→15:13)
[2018-08-04 06:02] LABS: BUN/Creatinine Ratio 34.2 (8-20); Calcium 9.1 mg/dL (8.6-10.3); EGFR African American 56.1 (>60); EGFR Non-African American 46.4 (>60)
[2018-08-04] MEDS: Insulin LISPRO* 1 UNITS UNIT SUBCUT SCH ×7 (07:59→20:50)
[2018-08-04] MEDS: Aspirin EC TAB* 81 MG TAB.EC PO SCH (09:02)
[2018-08-04] MEDS: Lisinopril TAB* 5 MG PO SCH (09:02)
[2018-08-04] MEDS: guaiFENesin ER TAB 600 MG PO SCH ×2 (09:02→20:40)
[2018-08-04] MEDS: Potassium Chlor TAB* 20 MEQ TAB.ER PO SCH ×3 (09:02→20:41)
[2018-08-04] MEDS: Furosemide TAB* 20 MG PO SCH (09:02)
[2018-08-04] MEDS: Sertraline* 50 MG TAB PO SCH (09:02)
--- NOTE | 2018-08-04 12:07 | PN ---
Subjective Date of Service: 08/04/18 Interval History: Was seen by hospice yesterday, to have family meeting tomorrow. Objective Active Medications: Acetaminophen (Tylenol Tab*) 650 mg PO Q4H PRN PRN Reason: FEVER/PAIN Last Admin: 08/04/18 05:43 Dose: 650 mg Hydrocodone Bitart/Acetaminophen ([place] 5-325 Tab*) 1 tab PO Q4H PRN PRN Reason: PAIN Last Admin: 08/02/18 12:15 Dose: 1 tab Al Hydrox/Mg Hydrox/Simethicone (Maalox Plus*) 30 ml PO Q6H PRN PRN Reason: INDIGESTION Aspirin (Aspirin Ec Tab*) 81 mg PO QAM [facility] Last Admin: 08/04/18 09:02 Dose: 81 mg Atropine Sulfate (Atropine 1% (Oral/Sl)*) 2 drop SL Q2H PRN PRN Reason: DISCOMFORT Dextrose (D50w Syringe 50 Ml*) 12.5 gm IV PUSH .FOR FS < 60 - SS PRN PRN Reason: FS < 60 Docusate Sodium (Colace Cap*) 100 mg PO BID PRN PRN Reason: CONSTIPATION Last Admin: 08/02/18 12:15 Dose: 100 mg Furosemide (Lasix Tab*) 20 mg PO DAILY [facility] Last Admin: 08/04/18 09:02 Dose: 20 mg Guaifenesin (Mucinex*) 600 mg PO BID [facility] Last Admin: 08/04/18 09:02 Dose: 600 mg Hydromorphone HCl (Dilaudid Inj1s*) 0.5 mg IV SLOW PU Q4H PRN PRN Reason: PAIN Last Admin: 08/04/18 09:02 Dose: 0.5 mg Insulin Human Lispro (Humalog*) 0 units SUBCUT AC [facility]; Protocol Last Admin: 08/04/18 11:06 Dose: Not Given Insulin Human Lispro (Humalog*) 0 units SUBCUT ACHS [facility]; Protocol Last Admin: 08/04/18 07:59 Dose: Not Given Levothyroxine Sodium (Synthroid Tab*) 75 mcg PO DAILY@0600 [facility] Last Admin: 08/04/18 05:43 Dose: 75 mcg Lisinopril (Prinivil Tab*) 2.5 mg PO DAILY [facility] Last Admin: 08/04/18 09:02 Dose: 2.5 mg Loperamide HCl (Imodium Cap*) 2 mg PO Q4H PRN PRN Reason: LOOSE STOOLS Lorazepam (Ativan Tab(*)) 0.5 mg SL Q4H PRN PRN Reason: ANXIETY Last Admin: 08/03/18 22:45 Dose: 0.5 mg Morphine Sulfate (Morphine Oral Concentrate*) 2.5 mg SL Q2H PRN PRN Reason: PAIN Ondansetron HCl (Zofran Inj*) 4 mg IV Q4H PRN PRN Reason: NAUSEA/VOMITING Potassium Chloride (Klor Con Er Tab*) 20 meq PO TID [facility] Last Admin: 08/04/18 09:02 Dose: 20 meq Senna (Senokot Tab*) 1 tab PO BID PRN PRN Reason: CONSTIPATION Last Admin: 08/02/18 22:24 Dose: 1 tab Sertraline HCl (Zoloft*) 50 mg PO DAILY [facility] Last Admin: 08/04/18 09:02 Dose: 50 mg Vital Signs - 8 hr 08/04/18 08/04/18 08/04/18 07:20 08:45 09:02 Temperature 98.1 F Pulse Rate 80 Respiratory 20 16 18 Rate Blood Pressure 131/66 (mmHg) O2 Sat by Pulse 96 Oximetry 08/04/18 08/04/18 10:05 11:25 Temperature 98.2 F Pulse Rate 68 Respiratory 16 20 Rate Blood Pressure 106/62 (mmHg) O2 Sat by Pulse 97 Oximetry Oxygen Devices in Use Now: Nasal Cannula Appearance: Lying in bed, not in distress. Ears/Nose/Mouth/Throat: Mucous Membranes Moist Respiratory: Clear to Auscultation Cardiovascular: RRR Abdominal: NL Sounds; No Tenderness; No Distention Neurological: - - Lying in bed, alert to person. Result Diagrams: 08/04/18 05:22 08/04/18 05:22 Microbiology and Other Data: Microbiology 07/30/18 21:58 Nasal Screen MRSA (PCR) - Final Nasal Mrsa Not Detected Assess/Plan/Problems-Billing Assessment: 88F, here with right femur fracture, prior fall had cervical fracture, with c- collar still in place. high risk for surgery, family opted to forego the surgery. - Patient Problems (1) Closed right hip fracture Current Visit: Yes Status: Acute Code(s): S72.001A - FRACTURE OF UNSP PART OF NECK OF RIGHT FEMUR, INIT SNOMED Code(s): 899903540 Comment: High risk for surgery, on 08/01 had a family meeting, decided not to go for surgery, and pursue palliative vs hospice care. (2) CKD (chronic kidney disease) stage 3, GFR 30-59 ml/min Current Visit: No Status: Acute Code(s): N18.3 - CHRONIC KIDNEY DISEASE, STAGE 3 (MODERATE) SNOMED Code(s): 102943388 Comment: stable. (3) Ischemic cardiomyopathy Current Visit: Yes Status: Acute Code(s): I25.5 - ISCHEMIC CARDIOMYOPATHY SNOMED Code(s): 926486413 Comment: Hx CABG 1994. LVEF 25-30% 07/31/18. LV thrombus seen on echo. Pulmonary edema improved after 2 doses of IV furosemide. Note BNP > 1300. Continue po furosemide, statin, ASA. lisinopril 2.5 mg daily (4) Cervical vertebral closed fracture Current Visit: No Status: Acute Comment: recent fracture has c. spine collar in place (5) DVT prophylaxis Current Visit: Yes Status: Acute Priority: Medium Onset Date: 10/27/14 Code(s): GQW9320 - SNOMED Code(s): 994263764 Comment: SCD (6) Afib Current Visit: No Status: Chronic Code(s): I48.91 - UNSPECIFIED ATRIAL FIBRILLATION SNOMED Code(s): 45333241 Comment: Not on AC recently. (7) DNR (do not resuscitate) Current Visit: Yes Status: Acute (8) Hypothyroidism Current Visit: No Status: Chronic Code(s): E03.9 - HYPOTHYROIDISM, UNSPECIFIED SNOMED Code(s): 92352790 Comment: TSH 7.13 06/02/18, increase levothyroxine to 75 mcg daily, repeat TSH in 4 weeks. Status and Disposition: Hospice meeting with family tomorrow. SNF w/ or w/o hospice is the current dispo plan.
[2018-08-04] MEDS: LORazepam TAB(*) 0.5 MG SL PRN (13:08)
--- NOTE | 2018-08-04 18:54 | CONSULT ---
Palliative / Hospice Consult Ordering Provider: Yong Cohen - PCP- Елена - Subjective Code Status: DNR Advance Directives Location: In Chart MOLST Part A Completed: Yes - completed with family HCP signed MOLST Part E Completed:: Yes - completed with family HCP signed - History or Present Illness History or Present Illness: 88 yo female resident of [place] who fell and was brought to the ER and found to have a R hip fracture and CHF (CXR showed pulmonary edema). Her other medical problems include ischemic cardiomyopathy EF 25-30%, LV thrombus, CKD EFGR=46 was 39,DM, BUN/CR 38/1.11, DM, her BNP greater than 1300, CAD s/p CABG in , HTN, anemia 9., hyperlipidemia, CVA x2, Afib, hypothyrodism, colitis , repeated falls is recuperating from a fall 04/2018 with cervical neck fx and is in a [place] J brace, L hip fx in 2007, h/o breast CA, memory deficits CT brain showed ischemic changes and depression. Pt is very hard of hearing and history was obtained from the chart. Met with all her children who completed the MOLST form for comfort care. Also discussed options for placement after the hospital. Pt had decided earlier that she didn't want hip surgery she was too high risk and didn't want to on the operating table. She had DNR/DNI and HCP (daughter) from previous visits. Family wants hospice residence. If it is not available then hospice at SNF. Family indicated that was also what their mom would want. Pt couldn't participate because was just medicated. Lab Values: Abnormal Lab Results 08/03/18 08/04/18 08/04/18 20:42 05:22 05:22 WBC 11.3 H RBC 3.42 L Hgb 10.6 L Hct 33 L MCV 95 MCH 31 MCHC 33 RDW 18 H Plt Count 104 L MPV 9.0 Sodium 144 Potassium 5.0 Chloride 108 Carbon Dioxide 30 Anion Gap 6 BUN 38 H Creatinine 1.11 H Est GFR ( Amer) 56.1 Est GFR (Non-Af Amer) 46.4 BUN/Creatinine Ratio 34.2 H Glucose 90 POC Glucose (mg/dL) 90 Calcium 9.1 08/04/18 08/04/18 12:38 17:56 WBC RBC Hgb Hct MCV MCH MCHC RDW Plt Count MPV Sodium Potassium Chloride Carbon Dioxide Anion Gap BUN Creatinine Est GFR ( Amer) Est GFR (Non-Af Amer) BUN/Creatinine Ratio Glucose POC Glucose (mg/dL) 141 H 103 H Calcium Laboratory Last Values WBC 11.3 10^3/ul (3.5-10.8) H 08/04/18 05:22 RBC 3.42 10^6/ul (4.00-5.40) L 08/04/18 05:22 Hgb 10.6 g/dl (12.0-16.0) L 08/04/18 05:22 Hct 33 % (35-47) L 08/04/18 05:22 MCV 95 fL (80-97) 08/04/18 05:22 MCH 31 pg (27-31) 08/04/18 05:22 MCHC 33 g/dl (31-36) 08/04/18 05:22 RDW 18 % (10.5-15) H 08/04/18 05:22 Plt Count 104 10^3/ul (150-450) L 08/04/18 05:22 MPV 9.0 fL (7.4-10.4) 08/04/18 05:22 Neut % (Auto) 72.4 % 08/02/18 06:00 Lymph % (Auto) 14.1 % 08/02/18 06:00 [place] % (Auto) 9.4 % 08/02/18 06:00 Eos % (Auto) 3.1 % 08/02/18 06:00 Baso % (Auto) 1.0 % 08/02/18 06:00 Absolute Neuts (auto) 6.9 10^3/ul (1.5-7.7) 08/02/18 06:00 Absolute Lymphs (auto) 1.4 10^3/ul (1.0-4.8) 08/02/18 06:00 Absolute Monos (auto) 0.9 10^3/ul (0-0.8) H 08/02/18 06:00 Absolute Eos (auto) 0.3 10^3/ul (0-0.6) 08/02/18 06:00 Absolute Basos (auto) 0.1 10^3/ul (0-0.2) 08/02/18 06:00 Absolute Nucleated RBC 0 10^3/ul 08/02/18 06:00 Nucleated RBC % 0 08/02/18 06:00 Hem Pathologist Commnt 07/31/18 06:00 INR (Anticoag Therapy) 1.25 (0.77-1.02) H 08/02/18 06:00 APTT 27.3 seconds (26.0-36.3) 07/30/18 18:22 Sodium 144 mmol/L (135-145) 08/04/18 05:22 Potassium 5.0 mmol/L (3.5-5.0) 08/04/18 05:22 Chloride 108 mmol/L (101-111) 08/04/18 05:22 Carbon Dioxide 30 mmol/L (22-32) 08/04/18 05:22 Anion Gap 6 mmol/L (2-11) 08/04/18 05:22 BUN 38 mg/dL (6-24) H 08/04/18 05:22 Creatinine 1.11 mg/dL (0.51-0.95) H 08/04/18 05:22 Est GFR ( Amer) 56.1 (>60) 08/04/18 05:22 Est GFR (Non-Af Amer) 46.4 (>60) 08/04/18 05:22 BUN/Creatinine Ratio 34.2 (8-20) H 08/04/18 05:22 Glucose 90 mg/dL (70-100) 08/04/18 05:22 POC Glucose (mg/dL) 103 mg/dL (70-100) H 08/04/18 17:56 Calcium 9.1 mg/dL (8.6-10.3) 08/04/18 05:22 Magnesium 1.2 mg/dL (1.9-2.7) L 07/30/18 21:58 Total Bilirubin 1.10 mg/dL (0.2-1.0) H 07/30/18 18:22 AST 41 U/L (13-39) H 07/30/18 18:22 ALT 38 U/L (7-52) 07/30/18 18:22 Alkaline Phosphatase 118 U/L (34-104) H 07/30/18 18:22 Troponin I 0.05 ng/mL (<0.04) H* 07/30/18 21:58 B-Natriuretic Peptide > 1300 pg/mL (<=100) H 07/30/18 18:22 Total Protein 7.1 g/dL (6.4-8.9) 07/30/18 18:22 Albumin 3.7 g/dL (3.2-5.2) 07/30/18 18:22 Globulin 3.4 g/dL (2-4) 07/30/18 18:22 Albumin/Globulin Ratio 1.1 (1-3) 07/30/18 18:22 - Objective Active Medications: Acetaminophen (Tylenol Tab*) 650 mg PO Q4H PRN PRN Reason: FEVER/PAIN Last Admin: 08/04/18 15:13 Dose: 650 mg Hydrocodone Bitart/Acetaminophen ([place] 5-325 Tab*) 1 tab PO Q4H PRN PRN Reason: PAIN Last Admin: 08/02/18 12:15 Dose: 1 tab Al Hydrox/Mg Hydrox/Simethicone (Maalox Plus*) 30 ml PO Q6H PRN PRN Reason: INDIGESTION Aspirin (Aspirin Ec Tab*) 81 mg PO QAM [facility] Last Admin: 08/04/18 09:02 Dose: 81 mg Atropine Sulfate (Atropine 1% (Oral/Sl)*) 2 drop SL Q2H PRN PRN Reason: DISCOMFORT Dextrose (D50w Syringe 50 Ml*) 12.5 gm IV PUSH .FOR FS < 60 - SS PRN PRN Reason: FS < 60 Docusate Sodium (Colace Cap*) 100 mg PO BID PRN PRN Reason: CONSTIPATION Last Admin: 08/02/18 12:15 Dose: 100 mg Furosemide (Lasix Tab*) 20 mg PO DAILY [facility] Last Admin: 08/04/18 09:02 Dose: 20 mg Guaifenesin (Mucinex*) 600 mg PO BID [facility] Last Admin: 08/04/18 09:02 Dose: 600 mg Hydromorphone HCl (Dilaudid Inj1s*) 0.5 mg IV SLOW PU Q4H PRN PRN Reason: PAIN Last Admin: 08/04/18 16:02 Dose: 0.5 mg Insulin Human Lispro (Humalog*) 0 units SUBCUT AC [facility]; Protocol Last Admin: 08/04/18 14:54 Dose: Not Given Insulin Human Lispro (Humalog*) 0 units SUBCUT ACHS [facility]; Protocol Last Admin: 08/04/18 18:40 Dose: Not Given Levothyroxine Sodium (Synthroid Tab*) 75 mcg PO DAILY@0600 [facility] Last Admin: 08/04/18 05:43 Dose: 75 mcg Lisinopril (Prinivil Tab*) 2.5 mg PO DAILY [facility] Last Admin: 08/04/18 09:02 Dose: 2.5 mg Loperamide HCl (Imodium Cap*) 2 mg PO Q4H PRN PRN Reason: LOOSE STOOLS Lorazepam (Ativan Tab(*)) 0.5 mg SL Q4H PRN PRN Reason: ANXIETY Last Admin: 08/04/18 13:08 Dose: 0.5 mg Morphine Sulfate (Morphine Oral Concentrate*) 2.5 mg SL Q2H PRN PRN Reason: PAIN Ondansetron HCl (Zofran Inj*) 4 mg IV Q4H PRN PRN Reason: NAUSEA/VOMITING Potassium Chloride (Klor Con Er Tab*) 20 meq PO TID [facility] Last Admin: 08/04/18 15:13 Dose: 20 meq Senna (Senokot Tab*) 1 tab PO BID PRN PRN Reason: CONSTIPATION Last Admin: 08/02/18 22:24 Dose: 1 tab Sertraline HCl (Zoloft*) 50 mg PO DAILY [facility] Last Admin: 08/04/18 09:02 Dose: 50 mg Vital Signs: Vital Signs: Temp Pulse Resp BP Pulse Ox 98.7 F 72 18 144/78 99 08/04/18 16:02 08/04/18 16:02 08/04/18 16:02 08/04/18 16:02 08/04/18 16:02 Patient Weight: Weight 69.236 kg Intake and Output: Intake & Output 08/02/18 08/03/18 08/04/18 08/05/18 06:59 06:59 06:59 06:59 Intake Total 370 1200 480 100 Output Total 1890 1800 1900 750 Balance -1520 -600 -1420 -650 Intake: Oral 370 1200 480 100 Output: [place] 1890 1800 1900 750 Other: # Bowel Movements 2 Estimated Stool Amount Medium ADLs: Meal Record Start: 07/30/18 20: 48 Freq: ,,18 Status: Inactive Protocol: Created 07/30/18 20:48 System (Rec: 07/30/18 20:48 System OR-C21) Document 07/31/18 09:00 [id number] (Rec: 07/31/18 11:46 [id number] ICU-C08) Document 07/31/18 13:00 [id number] (Rec: 07/31/18 15:37 [id number] ICU-L03) Document 07/31/18 18:48 [id number] (Rec: 07/31/18 18:49 [id number] ICU-C12) Document 08/01/18 09:00 [id number] (Rec: 08/01/18 09:42 [id number] ICU-C20) ADLs: Meal Record Start: 08/01/18 12: 51 Freq: Status: Active Protocol: Created 08/01/18 12:51 [id number] (Rec: 08/01/18 12:51 [id number] SSU-C12) Document 08/02/18 10:25 [id number] (Rec: 08/02/18 10:25 [id number] SSU-M16) Document 08/02/18 15:41 [id number] (Rec: 08/02/18 15:41 [id number] SSU-M16) Document 08/02/18 19:11 SME1444 (Rec: 08/02/18 19:11 QDC0801 SSU-M16) Document 08/03/18 09:00 WSK2720 (Rec: 08/03/18 09:17 [id number] SSU-C03) Document 08/04/18 09:00 CWT8419 (Rec: 08/04/18 09:43 [id number] SSU-C03) Intake and Output Start: 07/30/18 16: 39 Freq: Status: Active Protocol: Created 07/30/18 16:39 System (Rec: 07/30/18 16:39 System [id number]-C08) Intake and Output Start: 07/30/18 20: 48 Freq: Q1HR Status: Inactive Protocol: Created 07/30/18 20:48 System (Rec: 07/30/18 20:48 System OR-C21) Document 07/30/18 22:00 [id number] (Rec: 07/30/18 22:25 NVH6817 ICU-M34) Document 07/30/18 23:00 YIK6114 (Rec: 07/30/18 23:27 SMT5578 ICU-M22) Document 07/31/18 00:00 [id number] (Rec: 07/31/18 01:01 VFA6724 ICU-M22) Document 07/31/18 01:00 GRD1295 (Rec: 07/31/18 01:12 DRE6131 ICU-M22) Document 07/31/18 02:00 JTE2412 (Rec: 07/31/18 02:22 WEI4811 ICU-M22) Document 07/31/18 03:00 ETM6589 (Rec: 07/31/18 03:03 HIR3755 ICU-M22) Document 07/31/18 04:00 QXY6783 (Rec: 07/31/18 04:15 FQX0110 ICU-M22) Document 07/31/18 05:00 SOD4048 (Rec: 07/31/18 05:32 TXY0511 ICU-M22) Document 07/31/18 06:00 QGS9405 (Rec: 07/31/18 06:10 CUQ9647 ICU-M22) Document 07/31/18 07:00 DBJ1456 (Rec: 07/31/18 09:08 WEP2322 ICU-C08) Document 07/31/18 08:30 SFY9905 (Rec: 07/31/18 09:18 PPU2577 ICU-C08) Document 07/31/18 09:00 WTA7699 (Rec: 07/31/18 11:46 NFX8642 ICU-C08) Document 07/31/18 10:00 KVL8384 (Rec: 07/31/18 11:49 OPZ2401 ICU-C08) Document 07/31/18 11:00 EQE0004 (Rec: 07/31/18 11:51 YSA5910 ICU-C08) Document 07/31/18 12:00 HMF9412 (Rec: 07/31/18 14:14 ZKV5554 ICU-L03) Document 07/31/18 13:00 IUR2989 (Rec: 07/31/18 14:14 ZAT7576 ICU-L03) Document 07/31/18 14:00 WXO8317 (Rec: 07/31/18 14:15 BLQ6934 ICU-L03) Document 07/31/18 15:00 QVL4528 (Rec: 07/31/18 16:38 JDL4500 ICU-L03) Document 07/31/18 16:20 FXO1234 (Rec: 07/31/18 16:46 [id number] ICU-L03) Document 07/31/18 17:00 LHF2616 (Rec: 07/31/18 17:46 YVZ9495 ICU-C12) Document 07/31/18 18:48 QQK7864 (Rec: 07/31/18 18:49 LND2978 ICU-C12) Document 07/31/18 19:00 ZNC0109 (Rec: 07/31/18 20:55 NEH1924 ICU-L03) Document 07/31/18 20:00 BDR6775 (Rec: 07/31/18 20:55 [id number] ICU-L03) Document 07/31/18 20:55 KAB3661 (Rec: 07/31/18 20:55 QDM0615 ICU-L03) Document 07/31/18 22:00 XNH6243 (Rec: 08/01/18 02:22 BIG9911 ICU-L03) Document 07/31/18 23:00 LLA3273 (Rec: 08/01/18 02:22 DBF2403 ICU-L03) Document 08/01/18 00:00 [id number] (Rec: 08/01/18 02:22 CIT4720 ICU-L03) Document 08/01/18 01:00 DYY5182 (Rec: 08/01/18 02:22 WPS2201 ICU-L03) Document 08/01/18 02:00 JIA7950 (Rec: 08/01/18 02:22 [id number] ICU-L03) Document 08/01/18 03:00 LQF5876 (Rec: 08/01/18 03:11 AMR1886 ICU-L03) Document 08/01/18 04:00 WRK9202 (Rec: 08/01/18 05:43 MTL9677 ICU-L03) Document 08/01/18 05:00 CBX3533 (Rec: 08/01/18 05:43 CPA8162 ICU-L03) Document 08/01/18 06:00 EQA0119 (Rec: 08/01/18 07:19 GGC0779 ICU-L03) Document 08/01/18 09:21 CZZ3767 (Rec: 08/01/18 09:22 WAF3887 ICU-C20) Document 08/01/18 10:58 QNB3930 (Rec: 08/01/18 10:58 NZB9523 ICU-M23) Intake and Output Start: 08/01/18 12: 51 Freq: DAILY@0600,1400,2200 Status: Active Protocol: Created 08/01/18 12:51 NQU1025 (Rec: 08/01/18 12:51 [id number] SSU-C12) Document 08/01/18 14:46 ERE3851 (Rec: 08/01/18 14:46 HKY8224 SSU-C01) Document 08/01/18 22:20 KSZ4157 (Rec: 08/01/18 22:20 PIA1444 SSU-M17) Document 08/02/18 05:09 DFH8419 (Rec: 08/02/18 05:09 HGM5356 SSU-M17) Document 08/02/18 06:14 WZR8616 (Rec: 08/02/18 06:14 NNM0750 SSU-M18) Document 08/02/18 14:11 DWZ3484 (Rec: 08/02/18 14:14 QBF3279 SSU-M17) Document 08/02/18 22:31 VTD8675 (Rec: 08/02/18 22:32 OAD4545 SSU-M17) Document 08/03/18 05:38 VVQ3061 (Rec: 08/03/18 05:39 WFW9464 SSU-C03) Document 08/03/18 14:00 QSW4232 (Rec: 08/03/18 14:10 BZV6364 SSU-C03) Document 08/03/18 22:00 YNF7593 (Rec: 08/03/18 22:29 NDN8630 SSU-C09) Document 08/04/18 05:47 BWR9314 (Rec: 08/04/18 05:47 YCV6686 SSU-C02) Document 08/04/18 13:50 RTF4286 (Rec: 08/04/18 13:50 [id number] SSU-C03) Head: Normal Eyes: No Scleral Icterus Ears/Nose/Mouth/Throat: Mucous Membranes Moist Neck: NL Appearance and Movements; NL JVP Cardiovascular: NL Sounds; No Murmurs; No JVD, RRR Respiratory: Symmetrical Chest Expansion and Respiratory Effort Abdominal: NL Sounds; No Tenderness; No Distention Extremities: No Edema - trace edema Neurological: - - Lying in bed, alert to person. - Assessment Assessment: 88 you female with new R hip fx not surgically repaired, CHF, ischemic cardiomyopathy, CKD, DM, CVAx2, CAD,cervical neck fracture 04/2018, HTN, hyperlipidemia, afib, hypothyroidism, L hip fx 2007, colitis, s/p breast ca, repeated falls,anemia - Plan Consult Plan (MU): Hospice Plan: Long discussion with family and they are in agreement about pursuing hospice especially in the residence. Her primary diagnosis is CHF/ ischemic cardiomyopthy with EF 25-30% and CKD, new hip fracture which makes her bed bound and in chronic pain. If no bed is available they will go to SNF with hospice. I will have sw send a referral in the am and I will call Dr Mckeon for hospice order if she is approved. MOLST form was completed. - Time On Unit Date of Evaluation: 08/04/18 Hospice Consult Time in: 05:30 Hospice Consult Time Out: 07:00 Hospice Consult Time Total: 90 > 50% of Time Spend In Counseling or Coordinating Care: Yes
[2018-08-05] MEDS: LORazepam TAB(*) 0.5 MG SL PRN ×3 (03:20→18:50)
[2018-08-05] MEDS: HYDROmorphone INJ1* 1 MG/ML SYRINGE IV SLOW PU PRN ×2 (03:28→10:53)
[2018-08-05] MEDS: Levothyroxine TAB* 75 MCG TAB PO SCH (05:27)
[2018-08-05] MEDS: Insulin LISPRO* 1 UNITS UNIT SUBCUT SCH ×7 (07:45→20:51)
[2018-08-05] MEDS: Furosemide TAB* 20 MG PO SCH (10:59)
[2018-08-05] MEDS: Lisinopril TAB* 5 MG PO SCH (10:59)
[2018-08-05] MEDS: Sertraline* 50 MG TAB PO SCH (11:00)
[2018-08-05] MEDS: Potassium Chlor TAB* 20 MEQ TAB.ER PO SCH ×3 (11:07→21:28)
[2018-08-05] MEDS: guaiFENesin ER TAB 600 MG PO SCH ×2 (11:10→21:28)
[2018-08-05] MEDS: Aspirin EC TAB* 81 MG TAB.EC PO SCH (11:11)
--- NOTE | 2018-08-05 11:20 | PN ---
Subjective Date of Service: 08/05/18 Interval History: Family meeting done yesterday. plan to go w/ hospice pending to hear from hospice residence today she is tired appearing, does not answer many questions. Objective Active Medications: Acetaminophen (Tylenol Tab*) 650 mg PO Q4H PRN PRN Reason: FEVER/PAIN Last Admin: 08/04/18 15:13 Dose: 650 mg Hydrocodone Bitart/Acetaminophen ([place] 5-325 Tab*) 1 tab PO Q4H PRN PRN Reason: PAIN Last Admin: 08/02/18 12:15 Dose: 1 tab Al Hydrox/Mg Hydrox/Simethicone (Maalox Plus*) 30 ml PO Q6H PRN PRN Reason: INDIGESTION Aspirin (Aspirin Ec Tab*) 81 mg PO QAM [facility] Last Admin: 08/05/18 11:11 Dose: 81 mg Atropine Sulfate (Atropine 1% (Oral/Sl)*) 2 drop SL Q2H PRN PRN Reason: DISCOMFORT Dextrose (D50w Syringe 50 Ml*) 12.5 gm IV PUSH .FOR FS < 60 - SS PRN PRN Reason: FS < 60 Docusate Sodium (Colace Cap*) 100 mg PO BID PRN PRN Reason: CONSTIPATION Last Admin: 08/02/18 12:15 Dose: 100 mg Furosemide (Lasix Tab*) 20 mg PO DAILY [facility] Last Admin: 08/05/18 10:59 Dose: 20 mg Guaifenesin (Mucinex*) 600 mg PO BID [facility] Last Admin: 08/05/18 11:10 Dose: 600 mg Hydromorphone HCl (Dilaudid Inj1s*) 0.5 mg IV SLOW PU Q4H PRN PRN Reason: PAIN Last Admin: 08/05/18 10:53 Dose: 0.5 mg Insulin Human Lispro (Humalog*) 0 units SUBCUT AC [facility]; Protocol Last Admin: 08/05/18 10:52 Dose: Not Given Insulin Human Lispro (Humalog*) 0 units SUBCUT ACHS [facility]; Protocol Last Admin: 08/05/18 07:45 Dose: Not Given Levothyroxine Sodium (Synthroid Tab*) 75 mcg PO DAILY@0600 [facility] Last Admin: 08/05/18 05:27 Dose: 75 mcg Lisinopril (Prinivil Tab*) 2.5 mg PO DAILY [facility] Last Admin: 08/05/18 10:59 Dose: 2.5 mg Loperamide HCl (Imodium Cap*) 2 mg PO Q4H PRN PRN Reason: LOOSE STOOLS Lorazepam (Ativan Tab(*)) 0.5 mg SL Q4H PRN PRN Reason: ANXIETY Last Admin: 08/05/18 08:21 Dose: 0.5 mg Morphine Sulfate (Morphine Oral Concentrate*) 2.5 mg SL Q2H PRN PRN Reason: PAIN Ondansetron HCl (Zofran Inj*) 4 mg IV Q4H PRN PRN Reason: NAUSEA/VOMITING Potassium Chloride (Klor Con Er Tab*) 20 meq PO TID [facility] Last Admin: 08/05/18 11:07 Dose: 20 meq Senna (Senokot Tab*) 1 tab PO BID PRN PRN Reason: CONSTIPATION Last Admin: 08/02/18 22:24 Dose: 1 tab Sertraline HCl (Zoloft*) 50 mg PO DAILY [facility] Last Admin: 08/05/18 11:00 Dose: 50 mg Vital Signs - 8 hr 08/05/18 08/05/18 08/05/18 03:20 03:28 04:08 Temperature 99.5 F Pulse Rate 83 Respiratory 18 18 18 Rate Blood Pressure 118/57 (mmHg) O2 Sat by Pulse 96 Oximetry 08/05/18 08/05/18 08/05/18 04:49 05:23 07:17 Temperature Pulse Rate 76 Respiratory 16 16 16 Rate Blood Pressure 130/90 (mmHg) O2 Sat by Pulse 99 Oximetry 08/05/18 08/05/18 08/05/18 08:00 08:21 10:53 Temperature Pulse Rate Respiratory 16 16 24 Rate Blood Pressure (mmHg) O2 Sat by Pulse Oximetry Oxygen Devices in Use Now: Nasal Cannula Appearance: Elderly female in bed, not in distress, tired appearing Ears/Nose/Mouth/Throat: Mucous Membranes Moist Neck: - - cervical collar in place Respiratory: Clear to Auscultation Cardiovascular: RRR Extremities: No Edema Neurological: - - awake, alert, not oriented Result Diagrams: 08/04/18 05:22 08/04/18 05:22 Microbiology and Other Data: Microbiology 07/30/18 21:58 Nasal Screen MRSA (PCR) - Final Nasal Mrsa Not Detected Assess/Plan/Problems-Billing Assessment: 88F, here with right femur fracture, prior fall had cervical fracture, with c- collar still in place. high risk for surgery, family opted to forego the surgery. - Patient Problems (1) Closed right hip fracture Current Visit: Yes Status: Acute Code(s): S72.001A - FRACTURE OF UNSP PART OF NECK OF RIGHT FEMUR, INIT SNOMED Code(s): 644948462 Comment: Decided not to go through surgery. Hospice (2) CKD (chronic kidney disease) stage 3, GFR 30-59 ml/min Current Visit: No Status: Acute Code(s): N18.3 - CHRONIC KIDNEY DISEASE, STAGE 3 (MODERATE) SNOMED Code(s): 225131343 Comment: stable. (3) Ischemic cardiomyopathy Current Visit: Yes Status: Acute Code(s): I25.5 - ISCHEMIC CARDIOMYOPATHY SNOMED Code(s): 186553317 Comment: Hx CABG 1994. LVEF 25-30% 07/31/18. LV thrombus seen on echo. Pulmonary edema improved after 2 doses of IV furosemide. Note BNP > 1300. Continue po furosemide, statin, ASA. lisinopril 2.5 mg daily (4) Cervical vertebral closed fracture Current Visit: No Status: Acute Comment: recent fracture has c. spine collar in place (5) DVT prophylaxis Current Visit: Yes Status: Acute Priority: Medium Onset Date: 10/27/14 Code(s): UBL6141 - SNOMED Code(s): 434423046 Comment: SCD (6) Afib Current Visit: No Status: Chronic Code(s): I48.91 - UNSPECIFIED ATRIAL FIBRILLATION SNOMED Code(s): 49297151 Comment: Not on AC recently. (7) DNR (do not resuscitate) Current Visit: Yes Status: Acute (8) Hypothyroidism Current Visit: No Status: Chronic Code(s): E03.9 - HYPOTHYROIDISM, UNSPECIFIED SNOMED Code(s): 54940852 Comment: TSH 7.13 06/02/18, increase levothyroxine to 75 mcg daily, repeat TSH in 4 weeks. Status and Disposition: Patient now for hospice, either discharge to hospice residence or SNF w/ hospice. manager cosmetics work on this.
[2018-08-05] MEDS ORDERED: LORazepam INJ* 2 MG/ML 1 ML VIAL IV PUSH PRN (18:56)
[2018-08-05] MEDS ORDERED: HYDROmorphone INJ* 1 MG/ML CARPUJECT SYRINGE IV SLOW PU PRN (18:56)
[2018-08-05] MEDS ORDERED: HYDROmorphone INJ* 0.5 MG/0.5 ML SYRINGE ONE (18:59)
--- NOTE | 2018-08-05 19:11 | PN ---
Hospitalist Progress Note Date of Service: 08/05/18 Per RN, patient agitated and in pain, will not take anything orally. Will give one dose dilaudid IVP now and apply low dose fentanyl patch. Encouraged RN to trial roxanol PRN breakthrough pain or air hunger.
[2018-08-05] MEDS ORDERED: fentaNYL PATCH 12 MCG/HR TRANSDERM SCH (20:00)
[2018-08-06] MEDS: Morphine ORAL CONCENTRATE* 5 MG/0.25 ML ORAL.SYRIN SL PRN ×4 (03:31→11:49)
[2018-08-06] MEDS: Levothyroxine TAB* 75 MCG TAB PO SCH (07:00)
[2018-08-06] MEDS ORDERED: fentaNYL Patch Check Q Shift 1 NOTE FOLLOW UP SCH (07:00)
[2018-08-06] MEDS: Insulin LISPRO* 1 UNITS UNIT SUBCUT SCH ×4 (08:00→11:46)
[2018-08-06] MEDS: guaiFENesin ER TAB 600 MG PO SCH (09:57)
[2018-08-06] MEDS: Aspirin EC TAB* 81 MG TAB.EC PO SCH (09:57)
[2018-08-06] MEDS: Sertraline* 50 MG TAB PO SCH (09:58)
[2018-08-06] MEDS: Lisinopril TAB* 5 MG PO SCH (09:59)
[2018-08-06] MEDS: Furosemide TAB* 20 MG PO SCH (10:01)
[2018-08-06] MEDS: Potassium Chlor TAB* 20 MEQ TAB.ER PO SCH (10:01)
--- NOTE | 2018-08-06 11:00 | PN ---
Subjective Date of Service: 08/06/18 Interval History: She has been accepted to the hospice residence Objective Active Medications: Acetaminophen (Tylenol Tab*) 650 mg PO Q4H PRN PRN Reason: FEVER/PAIN Last Admin: 08/04/18 15:13 Dose: 650 mg Hydrocodone Bitart/Acetaminophen ([place] 5-325 Tab*) 1 tab PO Q4H PRN PRN Reason: PAIN Last Admin: 08/02/18 12:15 Dose: 1 tab Al Hydrox/Mg Hydrox/Simethicone (Maalox Plus*) 30 ml PO Q6H PRN PRN Reason: INDIGESTION Aspirin (Aspirin Ec Tab*) 81 mg PO QAM [facility] Last Admin: 08/06/18 09:57 Dose: 81 mg Atropine Sulfate (Atropine 1% (Oral/Sl)*) 2 drop SL Q2H PRN PRN Reason: DISCOMFORT Dextrose (D50w Syringe 50 Ml*) 12.5 gm IV PUSH .FOR FS < 60 - SS PRN PRN Reason: FS < 60 Docusate Sodium (Colace Cap*) 100 mg PO BID PRN PRN Reason: CONSTIPATION Last Admin: 08/02/18 12:15 Dose: 100 mg Fentanyl (Duragesic Patch 12 Mcg/Hr *) 12 mcg TRANSDERM Q72H [facility] Last Admin: 08/05/18 21:25 Dose: 12 mcg Furosemide (Lasix Tab*) 20 mg PO DAILY [facility] Last Admin: 08/06/18 10:01 Dose: 20 mg Guaifenesin (Mucinex*) 600 mg PO BID [facility] Last Admin: 08/06/18 09:57 Dose: Not Given Insulin Human Lispro (Humalog*) 0 units SUBCUT AC [facility]; Protocol Last Admin: 08/06/18 08:00 Dose: Not Given Insulin Human Lispro (Humalog*) 0 units SUBCUT ACHS [facility]; Protocol Last Admin: 08/06/18 08:00 Dose: Not Given Levothyroxine Sodium (Synthroid Tab*) 75 mcg PO DAILY@0600 [facility] Last Admin: 08/06/18 07:00 Dose: Not Given Lisinopril (Prinivil Tab*) 2.5 mg PO DAILY [facility] Last Admin: 08/06/18 09:59 Dose: 2.5 mg Loperamide HCl (Imodium Cap*) 2 mg PO Q4H PRN PRN Reason: LOOSE STOOLS Lorazepam (Ativan Tab(*)) 0.5 mg SL Q4H PRN PRN Reason: ANXIETY Last Admin: 08/05/18 08:21 Dose: 0.5 mg Lorazepam (Ativan Inj*) 0.5 mg IV PUSH Q4H PRN PRN Reason: ANXIETY Last Admin: 08/06/18 06:39 Dose: 0.5 mg Morphine Sulfate (Morphine Oral Concentrate*) 2.5 mg SL Q1H PRN PRN Reason: PAIN Last Admin: 08/06/18 10:06 Dose: 2.5 mg Ondansetron HCl (Zofran Inj*) 4 mg IV Q4H PRN PRN Reason: NAUSEA/VOMITING Pharmacy Profile Note (Fentanyl Patch Check Q Shift) 1 note FOLLOW UP 0700, 1900 [facility] Last Admin: 08/06/18 06:48 Dose: 1 note Potassium Chloride (Klor Con Er Tab*) 20 meq PO TID [facility] Last Admin: 08/06/18 10:01 Dose: 20 meq Senna (Senokot Tab*) 1 tab PO BID PRN PRN Reason: CONSTIPATION Last Admin: 08/02/18 22:24 Dose: 1 tab Sertraline HCl (Zoloft*) 50 mg PO DAILY [facility] Last Admin: 08/06/18 09:58 Dose: 50 mg Vital Signs - 8 hr 08/06/18 08/06/18 08/06/18 03:31 04:08 06:39 Temperature Pulse Rate 94 Respiratory 20 18 16 Rate Blood Pressure 115/48 (mmHg) O2 Sat by Pulse 94 Oximetry 08/06/18 08/06/18 08/06/18 06:59 07:35 08:00 Temperature 98.9 F Pulse Rate 80 Respiratory 20 18 24 Rate Blood Pressure 100/57 (mmHg) O2 Sat by Pulse 95 Oximetry 08/06/18 08/06/18 08/06/18 08:05 10:06 10:50 Temperature Pulse Rate Respiratory 20 20 24 Rate Blood Pressure (mmHg) O2 Sat by Pulse Oximetry Oxygen Devices in Use Now: Nasal Cannula Appearance: lying in bed, not in distress. Neck: - - cervical collar in place Respiratory: - - scattered rhonchi Cardiovascular: RRR, No Edema Neurological: - - Awake/alert, oriented X one. Result Diagrams: 08/04/18 05:22 08/04/18 05:22 Microbiology and Other Data: Microbiology 07/30/18 21:58 Nasal Screen MRSA (PCR) - Final Nasal Mrsa Not Detected Assess/Plan/Problems-Billing Assessment: 88F, here with right femur fracture, prior fall had cervical fracture, with c- collar still in place. high risk for surgery, family opted to forego the surgery. - Patient Problems (1) Closed right hip fracture Current Visit: Yes Status: Acute Code(s): S72.001A - FRACTURE OF UNSP PART OF NECK OF RIGHT FEMUR, INIT SNOMED Code(s): 967621928 Comment: Decided not to go through surgery. Hospice plan to transfer to hospice residence today (2) CKD (chronic kidney disease) stage 3, GFR 30-59 ml/min Current Visit: No Status: Acute Code(s): N18.3 - CHRONIC KIDNEY DISEASE, STAGE 3 (MODERATE) SNOMED Code(s): 806196868 Comment: stable. (3) Ischemic cardiomyopathy Current Visit: Yes Status: Acute Code(s): I25.5 - ISCHEMIC CARDIOMYOPATHY SNOMED Code(s): 885586334 Comment: Hx CABG 1994. LVEF 25-30% 07/31/18. LV thrombus seen on echo. Pulmonary edema improved after 2 doses of IV furosemide. Note BNP > 1300. continue lasix. (4) Cervical vertebral closed fracture Current Visit: No Status: Acute Comment: recent fracture has c. spine collar in place (5) DVT prophylaxis Current Visit: Yes Status: Acute Priority: Medium Onset Date: 10/27/14 Code(s): VEF5676 - SNOMED Code(s): 980743599 Comment: SCD (6) Afib Current Visit: No Status: Chronic Code(s): I48.91 - UNSPECIFIED ATRIAL FIBRILLATION SNOMED Code(s): 63065252 Comment: Not on AC recently. (7) DNR (do not resuscitate) Current Visit: Yes Status: Acute (8) Hypothyroidism Current Visit: No Status: Chronic Code(s): E03.9 - HYPOTHYROIDISM, UNSPECIFIED SNOMED Code(s): 78402845 Comment: TSH 7.13 06/02/18, increase levothyroxine to 75 mcg daily, repeat TSH in 4 weeks. Status and Disposition: Transfer to hospice residence today.
[2018-08-06 11:54] VITALS: BP 100/48
--- NOTE | 2018-08-06 15:46 | DS ---
CC: Dr. Floresita Christiansen; Dr. Rivas, hospice resident, medical of director. DISCHARGE SUMMARY: DATE OF ADMISSION: 07/30/18 DATE OF DISCHARGE: 08/06/18 PRIMARY CARE PROVIDER: Dr. Floresita Christiansen. REASON FOR ADMISSION: Fall. HOSPITAL COURSE: This is an 88-year-old female with past medical history of coronary artery disease, CKD, diabetes, who was sent from the [facility] after sustaining a fall. The patient was brought in with a cervical collar in place from her prior cervical fracture that happened in March 2018. The patient was admitted to the hospital because she was found to have right femoral neck fracture as well as she was found to be in acute decompensated congestive heart failure. She was admitted to the intensive care unit with high- flow oxygen. She was started on IV diuresis, monitoring of I's and O's, an echocardiogram was ordered, and was started on aspirin 81 mg. Orthopedic consultation was obtained. Cardiology consultation was also obtained. The patient was deemed high risk for surgery and subsequently family had decided to forgo the surgery and consider hospice. Hospice consultation was obtained. An echocardiogram was obtained regarding the congestive heart failure and the patient was found to have ejection fraction of 25% to 30% and was also found to have a large LV thrombus. The patient continued to do okay with her congestive heart failure with the diuresis; however, due to her hip fracture, the patient continued to be in pain. The family opted to go the hospice route and the patient was accepted to hospice. The patient will be discharged to the hospice residence facility. CONDITION ON DISCHARGE: Guarded. DISCHARGE PLAN: The patient to go to hospice residence. INSTRUCTIONS: The patient due to the hip fracture is on bedrest, with transfer with [facility]. DISCHARGE MEDICATIONS: 1. Zoloft 100 mg daily. 2. Loperamide 2 mg capsule every 4 hours as needed for diarrhea. 3. Guaifenesin 100 mg/5 mL, 100 mg p.o. every 6 hours as needed for cough. 4. Acetaminophen 325 mg every 6 hours as needed. 5. Morphine concentrate 5 mg/0.25 mL, 2.5 mg every 2 hours as needed. 6. Senna tab, 1 tab twice daily as needed. 7. Lorazepam (Ativan) 0.5 mg tablet sublingual every 4 hours as needed. 8. Levothyroxine 75 mcg daily. 9. Furosemide 20 mg daily. 10. Fentanyl patch 12 mcg/hour every 72 hours. 11. Atropine 1% two drops sublingual every 2 hours as needed. DISCHARGE DIAGNOSIS: 1. Right femur fracture 2. Acute on chronic congestive heart failure 3. Hospice status. 3. Recent cervical fracture 4. Chronic Kidney disease 5. Coronary Artery disease 6. Left ventricular thrombus 7. Unspecified Hypothyroidism [id number]/[facility] #: [id number] [facility]
== END 2018-08-06 12:30 | disposition hospice, inpatient (51) | DRG 291 ==
LOC: ED 16:17 → ICU 19:48 → SSU 08-01 11:54
PROVIDERS: ADMIT Pediatrics; ATTEND Internal Medicine
DX: I13.0 Hypertensive heart and chronic kidney disease with heart failure and stage 1 through stage 4 chronic kidney disease, or unspecified chronic kidney disease (principal); S72.001A Fracture of unspecified part of neck of right femur, initial encounter for closed fracture; W19.XXXA Unspecified fall, initial encounter; I25.10 Atherosclerotic heart disease of native coronary artery without angina pectoris; N18.9 Chronic kidney disease, unspecified; E11.22 Type 2 diabetes mellitus with diabetic chronic kidney disease; I50.9 Heart failure, unspecified; E03.9 Hypothyroidism, unspecified; E78.5 Hyperlipidemia, unspecified; E53.8 Deficiency of other specified B group vitamins; I48.91 Unspecified atrial fibrillation; Z96.642 Presence of left artificial hip joint; H91.90 Unspecified hearing loss, unspecified ear; R29.6 Repeated falls; M06.9 Rheumatoid arthritis, unspecified; R09.02 Hypoxemia; I25.5 Ischemic cardiomyopathy; Z66 Do not resuscitate; I51.3 Intracardiac thrombosis, not elsewhere classified; E11.65 Type 2 diabetes mellitus with hyperglycemia; R54 Age-related physical debility; I08.0 Rheumatic disorders of both mitral and aortic valves; I49.1 Atrial premature depolarization; F32.9 Major depressive disorder, single episode, unspecified; M81.0 Age-related osteoporosis without current pathological fracture; Z95.1 Presence of aortocoronary bypass graft; Z88.8 Allergy status to other drugs, medicaments and biological substances; Z85.3 Personal history of malignant neoplasm of breast; Z86.73 Personal history of transient ischemic attack (TIA), and cerebral infarction without residual deficits; Z99.81 Dependence on supplemental oxygen; Z80.3 Family history of malignant neoplasm of breast; Z82.49 Family history of ischemic heart disease and other diseases of the circulatory system; Y92.121 Bathroom in nursing home as the place of occurrence of the external cause; Z88.5 Allergy status to narcotic agent; I25.2 Old myocardial infarction; S12.100G Unspecified displaced fracture of second cervical vertebra, subsequent encounter for fracture with delayed healing; Z87.891 Personal history of nicotine dependence; Z51.5 Encounter for palliative care
CPT/HCPCS: 36415; 70450; 71045; 72125; 80048; 80053; 83735; 83880; 84484; 85025; 85027; 85060; 85610; 85730; 87641; 93005; 93306; 99285; A9270-GY; J1170; J1644; J1940; J2060; J2930; J3475